=== PATIENT | male | born 1965 ===

== ENCOUNTER 2016-11-19 12:44 | Inpatient (IN) | payer SELFPAY ==
[2016-11-19] MEDS ORDERED: PROPOFOL/EMULSION 500 MG/50 ML BOTTLE IV ONE (12:49)
[2016-11-19] MEDS ORDERED: ASPIRIN RECTAL 300 MG SUPP PR ONE (12:54)
[2016-11-19] MEDS ORDERED: ROCURONIUM 100 MG/10 ML VIAL IVP ONE (13:00)
[2016-11-19] MEDS ORDERED: ETOMIDATE 20 MG/10 ML VIAL IVP ONE (13:00)
[2016-11-19] MEDS ORDERED: ASPIRIN 81 MG CHEWABLE TAB PO ONE (13:00)
--- NOTE | 2016-11-19 13:04 | EDPHY ---
H & P Time Seen by Provider: 11/19/16 12:44 HPI/ROS: CHIEF COMPLAINT: Cardiac arrest HISTORY OF PRESENT ILLNESS: Patient collapsed outside restaurant. There was 3 minutes CPR by 1st responders. On arrival by paramedics he had a pulse but lost pulses en route and was defibrillated once with return of pulses and sinus tachycardia. Only history available is that he had chest pain last night has no previous medical history. Further history and review of systems unobtainable because the patient is nonverbal and critical on arrival. PAST MEDICAL HISTORY: Negative per EMS Social history: , visiting from [place] per EMS General Appearance: Patient is obtunded on arrival. ENT, Mouth: Patient has a lower lip laceration, and dental injury to the upper teeth. Respiratory: Decreased breath sounds an agonal respirations. Cardiovascular: Regular rate and rhythm. Tachycardic Gastrointestinal: Abdomen is soft and non tender. Neurological: Patient is seen to move all 4 extremities but is moaning and nonverbal. Skin: No lacerations seen. Musculoskeletal: No extremity deformity. Remainder of examination deferred because of the critical nature of the patient. Emergency Department course/MDM: Patient was emergently intubated for airway protection, see procedure note for details. Rectal aspirin suppository. Dr. Olivares at bedside. Dr. Arora will evaluate in the ICU and deal with his lip laceration, discussed at 12:[address] Arrieta from oral surgery will see him in ICU re; dental trauma. To CT and then emergently to cardiac laborer petroleum refinery. Dr. Olivares met with the patient's , and consulted directly with Dr. Marquez who will meet the patient in the catheterization lab. Constitutional: Initial Vital Signs Heart Rate 119 H 11/19/16 12:44 Respiratory Rate 30 H 11/19/16 12:44 Blood Pressure 158/109 H 11/19/16 12:44 O2 Sat (%) 100 11/19/16 12:44 O2 Delivery Mode Ventilator Allergies/Adverse Reactions: Unable to Assess Allergy (Unverified 11/19/16 13:29) Home Medications: Medication Instructions Recorded Unobtainable 11/19/16 Medical Decision Making - Diagnostics EKG Interpretation: 12-lead EKG interpreted by me; official reading is in trace master. My interpretation is anterior ST elevation consistent with acute myocardial infarction, sinus tachycardia. Imaging: [place] CT head and cspine at 1329, facial trauma but no fracture, dental injury noted. Negative for other acute trauma. Reviewed personally by myself. CT results discussed with Dr. Maira Olivares at 1:30 p.m. Procedures: Indication for the procedure was cardiac arrest, inability to protect airway. Consent is implied as the patient is unconscious and nonverbal. The patient was preoxygenated with 100% oxygen by face mask. The patient was sedated with etomidate and paralyzed with rocuronium. The patient was orally endotracheally intubated under direct visualization with a 8.0 ETT. Tracheal intubation was confirmed with misting on the tube; breath sounds were auscultated equally bilaterally; appropriate color change with [employer] CO2 detector, capnography waveform is appropriate, oxygen saturation after procedure is 98-100%. Chest X-ray deferred to laborer [employer] ref[employer] because of the critical nature the patient. The procedure was performed by myself. Consult/Admit Bed Type: for oral surgery 1327 Critical Care Time: Critical care time spent by me, Dr. Isidro, exclusively with the care of this patient was 15 minutes, exclusive of PA or RECRUITER time and exclusive of separate procedures including intubation. The organ system at risk was cardiac and I ordered aspirin, EKG, supplemental oxygen, discussion with Cardiology consult Dr. Olivares and oral surgeon; to stabilize the patient and prevent worsening of the patient's condition. - Data Points Laboratory Results: Laboratory Results 11/19/16 12:48 11/19/16 12:48 11/19/16 12:48 WBC 24.27 H 10^3/uL (3.80-9.50) RBC 5.84 10^6/uL (4.40-6.38) Hgb 17.8 H g/dL (13.7-17.5) Hct 53.6 H % (40.0-51.0) MCV 91.8 fL (81.5-99.8) MCH 30.5 pg (27.9-34.1) MCHC 33.2 g/dL (32.4-36.7) RDW 13.2 % (11.5-15.2) Plt Count 297 10^3/uL (150-400) MPV 10.8 fL (8.7-11.7) Neut % (Auto) Not Reported Lymph % (Auto) Not Reported Forrest % (Auto) Not Reported Eos % (Auto) Not Reported Baso % (Auto) Not Reported Nucleat RBC Rel Count 0.0 % (0.0-0.2) Absolute Neuts (auto) Not Reported Absolute Lymphs (auto) Not Reported Absolute Monos (auto) Not Reported Absolute Eos (auto) Not Reported Absolute Basos (auto) Not Reported Absolute Nucleated RBC 0.00 10^3/uL (0-0.01) Immature Gran % Not Reported Seg Neutrophils % 58 % Band Neutrophils % 4 % Lymphocytes % 34 % Monocytes % 4 % Immature Gran # Not Reported Absolute Seg Neuts 14.08 H 10^/uL (1.70-6.50) Absolute Band Neuts 0.97 H 10^3/uL (0.00-0.70) Absolute Lymphocytes 8.25 H 10^3/uL (1.00-3.00) Absolute Monocytes 0.97 H 10^3/uL (0.30-0.80) RBC/WBC/PLT Morphology NORMAL (NORMAL) Atypical Lymphocytes 1+ H Platelet Estimate ADEQUATE (ADEQ) Smear Review By Pending PT 14.7 SEC (12.0-15.0) INR 1.15 (0.83-1.16) APTT 28.6 SEC (23.0-38.0) Sodium 144 mEq/L (134-144) Potassium 4.4 mEq/L (3.5-5.2) Chloride 106 mEq/L (97-110) Carbon Dioxide 18 L mEq/l (22-31) Anion Gap 20 H mEq/L (8-16) BUN 19 mg/dL (7-23) Creatinine 1.2 mg/dL (0.7-1.3) Estimated GFR > 60 Glucose 225 H mg/dL (70-100) Calcium 9.1 mg/dL (8.5-10.4) Troponin I 12.500 H ng/mL (0-0.034) Medications Given: Discontinued Medications Aspirin (Aspirin) 324 mg PO EDNOW ONE Stop: 11/19/16 13:01 Last Admin: 11/19/16 12:56 Dose: 324 mg Etomidate (Etomidate) 20 mg IVP EDNOW ONE Stop: 11/19/16 13:01 Last Admin: 11/19/16 12:49 Dose: 20 mg Propofol (Diprivan 10 Mg/Ml (Premix)) 50 mls @ 0 mls/hr IV EDNOW ONE; As Directed PRN Reason: Protocol Stop: 11/19/16 13:55 Last Admin: 11/19/16 13:59 Dose: 50 mls Rocuronium Wilmot (Zemuron) 100 mg IVP EDNOW ONE Stop: 11/19/16 13:01 Last Admin: 11/19/16 12:49 Dose: 100 mg Departure - Departure Disposition: [facility] Inpatient Acute Clinical Impression: STEMI (ST elevation myocardial infarction) Qualifiers: Involved coronary artery: unspecified coronary artery Qualifier Code: (I21.3) ST elevation (STEMI) myocardial infarction of unspecified site Lip laceration Qualifiers: Encounter type: initial encounter Qualifier Code: (S01.511A) Laceration without foreign body of lip, initial encounter Condition: Critical
[2016-11-19] MEDS ORDERED: LIDOCAINE 1% 30 ML SDV ONE (13:05)
[2016-11-19 13:06] LABS: ADD DIFF? YES; ADD MORPH? NO; ADD SCAN? NO; ATYPICAL LYMPHOCYTE FLAG 0 (0-99); FRAGMENT RBC FLAG 0 (0-99); HEMATOCRIT 53.6 % (40.0-51.0); HEMOGLOBIN 17.8 g/dL (13.7-17.5); LEFT SHIFT FLG 20 (0-99); LIPEMIA HEMOLYSIS FLAG 80 (0-99); MEAN CELL HEMOGLOBIN 30.5 pg (27.9-34.1); MEAN CELL HEMOGLOBIN CONCENTR. 33.2 g/dL (32.4-36.7); MEAN CELL VOLUME 91.8 fL (81.5-99.8); MEAN PLATELET VOLUME 10.8 fL (8.7-11.7); PLATELET CLUMPS FLAG 50 (0-99); PLATELET COUNT 297 10^3/uL (150-400); RED BLOOD CELL COUNT 5.84 10^6/uL (4.40-6.38); RED CELL DISTRIBUTION WIDTH 13.2 % (11.5-15.2)
[2016-11-19] MEDS ORDERED: fentaNYL 100 MCG/2 ML INJ ONE (13:06)
[2016-11-19] MEDS ORDERED: MIDAZOLAM 2 MG/2 ML VIAL ONE ×2 (13:06)
[2016-11-19] MEDS ORDERED: ATROPINE SULFATE 1 MG/10 ML SYR ONE ×2 (13:07→20:00)
[2016-11-19] MEDS ORDERED: EPINEPHrine 1 MG/10 ML SYR IVP ONE ×2 (13:08→20:00)
[2016-11-19] MEDS ORDERED: BIVALIRUDIN 250 MG/5 ML VIAL IV ONE ×2 (13:08→14:06)
[2016-11-19 13:11] LABS: ANION GAP 20 mEq/L (8-16); CALCIUM 9.1 mg/dL (8.5-10.4); CARBON DIOXIDE 18 mEq/l (22-31); CHLORIDE 106 mEq/L (97-110); CREATININE 1.2 mg/dL (0.7-1.3); GLOMERULAR FILTRATION RATE > 60; GLUCOSE 225 mg/dL (70-100); POTASSIUM 4.4 mEq/L (3.5-5.2); SODIUM 144 mEq/L (134-144)
[2016-11-19 13:14] LABS: INR 1.15 (0.83-1.16); PROTIME(PATIENT) 14.7 SEC (12.0-15.0)
[2016-11-19 13:15] LABS: APTT 28.6 SEC (23.0-38.0)
[2016-11-19] MEDS ORDERED: ETOMIDATE 40 MG/20 ML INJ ONE (13:25)
--- NOTE | 2016-11-19 13:33 | CT ---
1. CT Head Without Contrast History: Trauma. Cardiac arrest. Facial trauma. Acute MO. Technique: Noncontrast images through the head. Soft tissue and bone window evaluation is performed. Dose reduction techniques were utilized. Findings: The patient is intubated. There is soft tissue swelling in the naso and oropharynx. There i s no evidence for hemorrhage, mass lesion, acute infarction, intracranial edema, hydrocephalus or abn ormal intracranial calcification. No subarachnoid blood is identified. There is no midline shift. The ambient cistern is patent. Bone window evaluation reveals normally aerated paranasal and mastoid sin uses. There is no evidence of pneumocephalus. The right first incisor is absent. No facial bone fract ure is identified. Impression: 1. Head CT within normal limits. 2. Soft tissue swelling in the naso and oropharynx. 3. Absent right first incisor. 2. CT Cervical Spine Without Contrast History: Trauma. Cardiac arrest. Facial trauma. Acute MO. Technique: Multislice helical CT through the cervical spine without contrast from the skull base to T 1. Soft tissue and bone evaluation is performed. Sagittal and coronal reconstructions are obtained an d reviewed. Dose reduction techniques were utilized. Findings: Cervical alignment is anatomic. No fracture or dislocation is identified. The relationship between skull base and C1 is normal. The C1-C2 articulation is normally aligned. The odontoid process is intact. Disk spaces maintain their normal height . Facet joints are normally aligned. The cervic al thoracic junction is normally aligned. Soft tissue window evaluation does not show evidence of epi dural or prevertebral hematoma. Impression: No acute posttraumatic abnormality identified. Results called to Dr. Elías Isidro and Dr. Maira Olivares at 1:30 PM. Final results are concordant with the initial interpretation. General information for patients regarding this examination can be found at [email or web address]. If you have questions or comments about this report, please contact me at [phone] (hospital) or [phone] (cell).
--- NOTE | 2016-11-19 13:33 | CT ---
1. CT Head Without Contrast History: Trauma. Cardiac arrest. Facial trauma. Acute MA. Technique: Noncontrast images through the head. Soft tissue and bone window evaluation is performed. Dose reduction techniques were utilized. Findings: The patient is intubated. There is soft tissue swelling in the naso and oropharynx. There i s no evidence for hemorrhage, mass lesion, acute infarction, intracranial edema, hydrocephalus or abn ormal intracranial calcification. No subarachnoid blood is identified. There is no midline shift. The ambient cistern is patent. Bone window evaluation reveals normally aerated paranasal and mastoid sin uses. There is no evidence of pneumocephalus. The right first incisor is absent. No facial bone fract ure is identified. Impression: 1. Head CT within normal limits. 2. Soft tissue swelling in the naso and oropharynx. 3. Absent right first incisor. 2. CT Cervical Spine Without Contrast History: Trauma. Cardiac arrest. Facial trauma. Acute MA. Technique: Multislice helical CT through the cervical spine without contrast from the skull base to T 1. Soft tissue and bone evaluation is performed. Sagittal and coronal reconstructions are obtained an d reviewed. Dose reduction techniques were utilized. Findings: Cervical alignment is anatomic. No fracture or dislocation is identified. The relationship between skull base and C1 is normal. The C1-C2 articulation is normally aligned. The odontoid process is intact. Disk spaces maintain their normal height . Facet joints are normally aligned. The cervic al thoracic junction is normally aligned. Soft tissue window evaluation does not show evidence of epi dural or prevertebral hematoma. Impression: No acute posttraumatic abnormality identified. Results called to Dr. Elías Isidro and Dr. Maira Olivares at 1:30 PM. Final results are concordant with the initial interpretation. General information for patients regarding this examination can be found at [email or web address]. If you have questions or comments about this report, please contact me at [phone] (hospital) or [phone] (cell).
[2016-11-19 13:34] LABS: PLATELET ESTIMATE ADEQUATE (ADEQ)
[2016-11-19] MEDS ORDERED: DOPamine/DEXTROSE/250 ML BAG IV ONE ×2 (13:40→19:46)
[2016-11-19 13:42] LABS: BASE EXCESS -10.9 mEq/L (-2.5-2.5); BICARBONATE 16 mEq/L (22-26); MEASURED OXYGEN SATURATION 95 % (92-95); PCO2 38 mmHg (34-38); PO2 96 mmHg (65-75); TCO2 17 mEq/L (23-27)
--- NOTE | 2016-11-19 13:42 | CPEKG ---
Heart Rate: 121 RR Interval: 496 QRSD Interval: 292 QT Interval: 524 QTC Interval: 744 QRS Granby: 2 T Wave Granby: 193 EKG Severity - ABNORMAL ECG - EKG Impression: WIDE COMPLEX TACHYCARDIA EKG Impression: ABERRANT COMPLEX EKG Impression: CONSIDER ANTEROSEPTAL INFARCT, POSSIBLY ACUTE EKG Impression: NONSPECIFIC INTRAVENTRICULAR CONDUCTION DELAY Electronically Signed By: Elías Isidro 19-Nov-2016 14:01:50
[2016-11-19 13:45] LABS: O2 CONCENTRATIION 100 % (0-100); P/F RATIO 96 RATIO; SIMV YES
[2016-11-19 13:46] LABS: PRESSURE SUPPORT 7
[2016-11-19] MEDS ORDERED: PROPOFOL/EMULSION 50 ML IV ONE (13:54)
[2016-11-19] MEDS ORDERED: IOPAMIDOL (ISOVUE 370) 100 ML BTL IV ONE (14:20)
[2016-11-19] MEDS ORDERED: NITROGLYCERIN 1,500 MCG/15 ML VIAL MISC ONE (14:22)
[2016-11-19] MEDS ORDERED: VECURONIUM BROMIDE 10 MG VIAL ONE ×2 (14:28→15:41)
[2016-11-19] MEDS ORDERED: ABCIXIMAB 10 MG/5 ML VIAL ONE (14:32)
[2016-11-19] MEDS ORDERED: CEFAZOLIN 1 GM/DEXTROSE/50 ML BAG IV ONE (15:22)
[2016-11-19] MEDS ORDERED: PROPOFOL/EMULSION 50 ML IV SCH (16:51)
[2016-11-19] MEDS ORDERED: USE *INSINTENS FOR HYPOGLYCEMIA ORDERS MISC ONE (16:51)
[2016-11-19] MEDS ORDERED: NOREPINEPHRINE BITARTRATE 4 MG in D5W 500 ML IV PRN (16:51)
[2016-11-19] MEDS ORDERED: NS 250 ML IV PRN (16:51)
[2016-11-19] MEDS ORDERED: PROPOFOL/EMULSION 1,000 MG/100 ML BOTTLE IV ONE (16:51)
[2016-11-19] MEDS ORDERED: NS 1,000 ML IV ONE (16:51)
[2016-11-19] MEDS ORDERED: NARCOTIC DRIP BAG-TOTAL ALL TYPES IV PRN (16:51)
[2016-11-19] MEDS ORDERED: PROTOCOL POTASSIUM 1 DOSE MISC PRN ×2 (16:51→17:02)
[2016-11-19] MEDS ORDERED: PROTOCOL MAGNESIUM 1 DOSE IV PRN ×2 (16:51→17:02)
[2016-11-19] MEDS ORDERED: NS 1,000 ML IV SCH (16:51)
[2016-11-19] MEDS ORDERED: niCARdipine/NACL 200 ML IV PRN (16:51)
[2016-11-19] MEDS ORDERED: fentaNYL 100 MCG/2 ML INJ IVP ONE (16:51)
[2016-11-19] MEDS ORDERED: MIDAZOLAM 2 MG/2 ML VIAL IVP PRN (16:51)
[2016-11-19] MEDS ORDERED: ACETAMINOPHEN 325 MG TAB PO PRN (16:58)
[2016-11-19] MEDS ORDERED: TEMAZEPAM 15 MG CAP PO PRN (16:58)
[2016-11-19] MEDS ORDERED: ATROPINE SULFATE 1 MG/10 ML SYR IVP PRN (16:58)
[2016-11-19] MEDS ORDERED: PRASUGREL HCL 10 MG TAB PO ONE (16:58)
[2016-11-19] MEDS ORDERED: LORazepam 2 MG/ML INJ IVP PRN (16:58)
[2016-11-19] MEDS ORDERED: NITROGLYCERIN 0.4 MG BTL SL PRN (16:58)
[2016-11-19] MEDS ORDERED: PRASUGREL HCL 10 MG TAB ONE (17:02)
[2016-11-19] MEDS: fentaNYL/NACL 100 ML IV SCH (17:19)
[2016-11-19 17:26] LABS: % IMMATURE GRANULYOCYTES 0.8 % (0.0-1.1); ABSOLUTE IMMATURE GRANULOCYTES 0.23 10^3/uL (0.00-0.10); ADD DIFF? NO; ADD MORPH? NO; ADD SCAN? NO; ATYPICAL LYMPHOCYTE FLAG 0 (0-99); FRAGMENT RBC FLAG 0 (0-99); HEMATOCRIT 54.9 % (40.0-51.0); HEMOGLOBIN 18.5 g/dL (13.7-17.5); LEFT SHIFT FLG 10 (0-99); LIPEMIA HEMOLYSIS FLAG 80 (0-99); MEAN CELL HEMOGLOBIN 30.7 pg (27.9-34.1); MEAN CELL HEMOGLOBIN CONCENTR. 33.7 g/dL (32.4-36.7); MEAN PLATELET VOLUME 11.2 fL (8.7-11.7); PLATELET CLUMPS FLAG 10 (0-99); PLATELET COUNT 317 10^3/uL (150-400); RED BLOOD CELL COUNT 6.03 10^6/uL (4.40-6.38); RED CELL DISTRIBUTION WIDTH 13.2 % (11.5-15.2)
[2016-11-19] MEDS: VECURONIUM BROMIDE 50 MG in D5W 50 ML IV SCH ×2 (17:28→17:43)
[2016-11-19] MEDS ORDERED: PRASUGREL HCL 10 MG TAB TUBE ONE (17:30)
[2016-11-19 17:33] LABS: INR 1.61 (0.83-1.16); PROTIME(PATIENT) 19.2 SEC (12.0-15.0)
[2016-11-19 17:34] LABS: APTT 54.7 SEC (23.0-38.0)
[2016-11-19 17:44] LABS: ALANINE AMINOTRANSFERASE 861 IU/L (21-72); ALBUMIN 4.4 g/dL (3.5-5.0); ALKALINE PHOSPHATASE 103 IU/L (38-126); ANION GAP 19 mEq/L (8-16); BILIRUBIN,TOTAL 1.4 mg/dL (0.1-1.4); BILIRUBIN-CONJUGATED 0.8 mg/dL (0.0-0.5); BILIRUBIN-UNCONJUGATED 0.6 mg/dL (0.0-1.1); CALCIUM 8.1 mg/dL (8.5-10.4); CARBON DIOXIDE 17 mEq/l (22-31); CHLORIDE 105 mEq/L (97-110); CREATININE 1.2 mg/dL (0.7-1.3); GLOMERULAR FILTRATION RATE > 60; GLUCOSE 338 mg/dL (70-100); POTASSIUM 3.8 mEq/L (3.5-5.2); SODIUM 141 mEq/L (134-144); TOTAL PROTEIN 7.9 g/dL (6.3-8.2)
--- NOTE | 2016-11-19 17:51 | DX ---
Portable AP chest. 11/19/2016 at 1720 History: Chest Pain Comparison study: None available Findings: Patient is intubated. There is a NG tube and IABP. Patchy atelectasis/consolidation of the central lungs bilaterally suggesting pulmonary edema. Impression: Intubation, IABP placement, NG-tube placement. Central bilateral lung consolidation sugg est pulmonary edema.
--- NOTE | 2016-11-19 17:53 | DX ---
Single view abdomen. 11/19/2016. History: NG tube placement. Findings: There is been placement of a nasogastric tube which extends to the gastric fundus. IABP catheter is identified to the left of midline. Excreted IV contrast is present within both kidneys from recent cardiac intervention. A duplicated re nal collecting system is present on the right. Impression: 1. NG tube extends to the gastric fundus.
[2016-11-19 17:58] LABS: ASPARTATE AMINOTRANSFERASE 1072 IU/L (17-59)
--- NOTE | 2016-11-19 18:24 | GHP ---
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 The patient had an argument with one of his 8 children, and experienc ed relatively severe chest tightness and pressure, which felt like a charley horse in his perez muscle s, deltoids, neck and upper back. Ultimately, that began to resolve, and the patient just felt sore and fatigued in his chest. He and his had planned a trip to [place] for a short celebration of his recent birthday on November 15, and spent the night in a bed and breakfast. He was somewhat fat igued for the majority of the day yesterday and pale, according to his . Last night, he went to bed to awaken this morning, and they walked briskly along the [employer], and he seemed to hav e his color back, but just felt somewhat fatigued. He did not complain of chest pain, palpitations, or shortness of breath today. His and he were outside of [employer] discussing what they would have for a light lunch, either soup or a wrap, when this patient suddenly lost consciousness an d pitched forward onto his face, striking his face on the hard surface of the [employer]. His immediately called 911 because he did not move, and a police judge were there within the firs t minute. They rolled him onto his back. He was unresponsive, and immediate high-quality CPR was in itiated by the [place] [employer], as well as a bystander, and [facility] Emergency Depart ment physician. The EMS arrived, and the patient was shocked successfully with a single shock from v entricular fibrillation arrest, with return of spontaneous circulation. The patient had sonorous chuy athing after his collapse, but was unresponsive through the entire episode. Cardiac alert was called, and Dr. Maira Olivares responded immediately, as she was in the hospital. I wa s also called, and began to make my way to the emergency department. The patient's initial EKG revea led sinus tachycardia, with an acute injury pattern in I, aVL, V1 and V2, with associated reciprocal change. There is clear-cut evidence of a STEMI involving the aVL, V2, V5, and V6 leads. A stat CT o f his head was performed because of the facial trauma to rule out an intracranial hemorrhage, as well as a cervical spine CT, and those were negative for fracture. The head CT was felt to be within nor mal limits. There was soft tissue swelling in the nasal and oropharynx, and there was an absent righ t 1st incisor, which was consistent with the patient's collapse, and an obviously broken tooth. The patient of course was unresponsive at the time of my arrival, and was on a propofol drip and intu bated. Additional history was obtained following the cardiac catheterization procedure, which I perf ormed. MEDICATIONS: The patient currently takes no medications. ALLERGIES: Is not known to be allergic to any medications. PAST SURGICAL HISTORY: Significant for a prior vasectomy, as well as a remote appendectomy. He has also had LASIK eye surgery. He is not known to have hypertension, diabetes or dyslipidemia. FAMILY HISTORY: The patient has a strong family history of premature cardiovascular illness. His mo ther has received multiple stents over the course of her lifetime, and his father has also suffered a silent myocardial infarction, and is currently hospitalized, and has been since last [place]. His father is not expected to have a meaningful survival at present. SOCIAL HISTORY: Negative for smoking. The patient denies illicit drug use of any kind. The patient 's states that he drinks approximately 1 beer less than once a week, so his alcohol consumption is minimal. He works as a real-real estate internship, as a said, in [place], and is and has 8 children. PHYSICAL EXAM: VITAL SIGNS: On arrival revealed a blood pressure of 158/109, heart rate 119, respir atory rate 30, with 100% bag valve FiO2. HEENT: On arrival in the emergency department, the patient has facial trauma, with laceration to his lip. He has also cracked off his 1st right incisor. The patient is intubated, with active facial bleeding. NECK: Reveals no JVD or crepitus. HEART: Revea ls an S1 and S2 with a summation gallop. LUNGS: Reveal bilateral rales. ABDOMEN: Reveals positive bowel sounds, is nondistended and nontender. EXTREMITIES: Cool and dry with diaphoresis. LABORATORY DATA: The EKG, as I mentioned, shows ST-segment elevation in I, aVL, V5 and V6, as well a s V2, consistent with a lateral ST-elevation myocardial infarction, but also concern for anterior or RV involvement. The patient's laboratory studies reveal a blood gas, pH is 7.24, pCO2 at 38, PO2 96. White count of 24.27, hemoglobin and hematocrit 17.8 and 53.6, platelet count 297. Coags were normal, with an INR o f 1.15, PT 14.7. The chemistries reveal a troponin of 12.5, a nonfasting glucose of 225, an anion ga p of 20, serum bicarbonate of 18, potassium is 4.4, BUN and creatinine are 19 and 1.2. IMPRESSION AND PLAN: [id number] cardiac arrest, with return of spontaneous circulation. The thomas rainey is currently noted to be comatose and unresponsive. The patient is having an acute ST-elevatio n myocardial infarction. The patient will be taken emergently to the cardiac catheterization [facility] for definitive assessment of his coronary anatomy, as well as for acute infarct intervention. Th e patient is Killip class IV, on the basis of his presentation and examination, and therefore has a v dominique guarded prognosis, both in the short term, that is the next 24 hours, as well as within the next 30 days, being a highest risk patient by those parameters. /[id number]/MODL
[2016-11-19] MEDS ORDERED: POTASSIUM Cl (KCl) 50 ML IV ONE (18:31)
[2016-11-19] MEDS ORDERED: AMIODARONE HCL 150 MG/100 ML BAG (1.5 MG/ML) IV ONE (18:35)
[2016-11-19] MEDS ORDERED: ASPIRIN 325 MG TAB ONE (18:35)
[2016-11-19 18:45] LABS: BASE EXCESS -14.1 mEq/L (-2.5-2.5); BICARBONATE 14 mEq/L (22-26); IONIZED CALCIUM 1.18 MMOL/L (1.12-1.30); MEASURED OXYGEN SATURATION 94 % (92-95); PCO2 41 mmHg (34-38); PO2 90 mmHg (65-75); TCO2 16 mEq/L (23-27)
[2016-11-19] MEDS ORDERED: D5W 1,000 ML IV SCH ×2 (18:46→19:00)
[2016-11-19] MEDS ORDERED: D50W 25 GM/50 ML SYR IVP PRN (18:46)
[2016-11-19] MEDS ORDERED: SODIUM BICARBONATE 50 MEQ/50 ML SYR ONE (18:58)
[2016-11-19] MEDS ORDERED: ATORVASTATIN CALCIUM 40 MG TAB TUBE ONE (19:00)
[2016-11-19] MEDS ORDERED: AMIODARONE HCL 100 ML IV ONE ×2 (19:00)
[2016-11-19] MEDS ORDERED: INSULIN REGULAR HUMAN 100 UNIT in NS 100 ML IV SCH (19:00)
[2016-11-19] MEDS ORDERED: ASPIRIN 325 MG TAB TUBE ONE (19:00)
[2016-11-19] MEDS: CARVEDILOL 3.125 MG TAB PO SCH (19:04)
[2016-11-19] MEDS: ERTAPENEM 1 GM in NS 100 ML IV SCH (19:06)
[2016-11-19] MEDS: INSULIN REGULAR HUMAN 100 UNIT in NS 100 ML IV SCH (19:06)
[2016-11-19 19:13] LABS: MAGNESIUM 1.9 mg/dL (1.6-2.3)
--- NOTE | 2016-11-19 19:14 | CPIP ---
[f rep st] INVASIVE CARDIAC PROCEDURE DATE OF PROCEDURE: 11/19/2016 REPORT TITLE: CARDIAC CATHETERIZATION EMERGENCY PROCEDURE REPORT PROCEDURES PERFORMED: 1. Selective coronary angiography. 2. Left heart catheterization. 3. Left ventriculogram. 4. Percutaneous transluminal coronary angioplasty and stent placement of the left circumflex coronar y. 5. Percutaneous transluminal coronary angioplasty and stent placement of the left anterior descendin g, ostial, and proximal left anterior descending and diagonal-1 bifurcation with crush and kissing ba lloon technique. 6. Percutaneous transluminal coronary angioplasty and stent placement of the right coronary artery. 7. Insertion of intra-aortic balloon pump for indication of cardiogenic shock in a patient status po st cardiac arrest. 8. Initiation of HACA protocol and placement of a cooling catheter for purposes of the same. COMPLICATIONS: A small, less than 5 cm hematoma, involving the groin femoral artery and venous inser tion sites in the right groin access. INDICATION FOR THE PROCEDURE: An out of hospital cardiac arrest secondary to acute ST-segment elevat ion myocardial infarction with return of spontaneous circulation in a patient who remains comatose. PROCEDURE IN DETAIL: After informed consent was obtained and n.p.o. status was confirmed, the region of the right groin was cleaned prepped and draped in sterile fashion. A 7-Vatican Citizen sheath was placed in the right common femoral artery and a 6-Vatican Citizen sheath in the right co mmon femoral vein with single anterior puncture of those vessels. CORONARY ANGIOGRAPHY: The patient underwent selective angiography of the right coronary artery with the use of a 6-Vatican Citizen JR4 diagnostic catheter. The right coronary artery is co-dominant, giving rise to a large acute marginal branch, followed by a 100% occlusion with vjmin-am-currk collaterals and T IMI-2 flow in that region. A 7-Vatican Citizen JL4 guiding catheter was used for diagnostic angiography of the left circulation. The lef t main coronary is approximately 8 mm in size, and bifurcates into an LAD and circumflex system. The LAD is 100% occluded with LAILA-0 flow shortly after its takeoff from the left main. The 1st diagona l also has a 99% obstruction with LAILA-2 flow in that vessel. The circumflex artery is 3 mm in size, and has a 100% occlusion with LAILA-2 flow to that vessel as well. We immediately turned our attention to repair of the circumflex, which revealed a 100% occlusion in o rder to try to return some blood flow to the patient's heart. A 0.014 Intuition wire was advanced ac ross the lesion in the circumflex, and the primary angioplasty was performed with an Emerge 2.0 x 8 b alloon. This resulted in antegrade flow that was improved into the codominant left circumflex, and t he left circumflex was then stented with a 2.5 x 20 [employer] stent inflated to maximum press ure of 16 atmospheres with subsequent improvement in flow. There was approximately 50% obstruction d istal to the stent. It was unclear to me if this was residual clot, or actual plaque. We redirected the Intuition wire down the LAD, and the LAD was primarily opened. With that wire, a 2nd wire was p laced into the diagonal vessel, and the 1st diagonal was stented with a 2.5 x 20 Synergy drug-eluting stent. The LAD was also stented with a 3.0 x 20 Synergy stent in its proximal segment. With implan tation of the diagonal stent, it became clear that we would have to stent back across the diagonal an d perform kissing balloon angioplasty, which was, indeed, performed with a 3.25 x 15 and a 2.5 x 15 E merge balloon. The LAD in the ostial segment was also stented with a 3.0 x 12 Synergy stent placed i n overlapping fashion in the LAD proper, and kissing balloon angioplasty was accomplished. We then n oted excellent LAILA-3 flow in the LAD and circumflex with 0% residual stenosis of both of those lesio ns. With angiography, we noted that there was acute stent thrombosis involving the previously placed sten t within the left circumflex, likely secondary to low-flow states. ACTs had been documented to be ad equate throughout this procedure, with initial ACT after Angiomax bolus and drip at 376. We, therefo re, placed a balloon up in that vessel, and placed a 2nd 2.5 x 20 drug-eluting stent in overlapping f ashion in the left circumflex with excellent angiographic results post dilation, and 0% residual stat us post PTCA and stent placement. There was excellent LAILA-3 flow throughout the circumflex LAD and diagonal stents post stent implantation. We turned our attention to the right coronary artery. A 7-Vatican Citizen JR4 guiding catheter with side hole s was used for guide catheter support. An 0.014 Intuition wire was advanced across lesion in questio n within the distal LAD, and parked in the distal PDA. The vessel was ballooned open with a 2.5 Elina ge balloon with serial inflations. The distal right coronary was then stented with a 2.5 x 28 Synerg y balloon inflated to maximum 16 atmospheres overlapping a 2.75 x 28 Synergy stent, which was then pl aced in the distal LAD, and the proximal segment was placed. The proximal portion of the 2.75 x 28 s tent was placed just distal to the takeoff of the acute marginal branch, and we improved the flow in the right coronary artery from a LAILA-2 flow to LAILA-3 flow with 100% occlusion and ahwqd-zr-bsxnh co llaterals initially, followed by brisk antegrade flow and 0% residual status post PTCA and stent plac ement. The patient underwent left heart catheterization demonstrating elevated left ventricular end-diastoli c pressure measured at 35 mmHg. LEFT VENTRICULOGRAM: The patient underwent left ventriculogram in the MCCRARY projection demonstrating s everely depressed left ventricular systolic dysfunction with basically global hypokinesis, and an est imated ejection fraction of 10%, and there was no evidence of a gradient upon pullback across the aor tic valve. The visualized portion of thoracic aorta did not reveal a taylor aneurysm or dissection. Because of the findings of the left ventriculogram and the acute nature of the patient's presentation , we decided to remove the pigtail catheter. We switched out the 7-Vatican Citizen sheath for an 8-Vatican Citizen int ra-aortic balloon pump sheath without a side arm. An intra-aortic balloon pump wire was then advance d under direct fluoroscopic guidance into the aortic arch, and the balloon pump catheter was appropri ately zeroed, and 40 cc catheter was advanced under direct fluoroscopic guidance with the tip placed just distal to the left subclavian take-off in the descending limb of the thoracic aorta. The balloo n pump was noted to be augmenting and unfurled appropriately after its insertion and appropriate conn ection to the intra-aortic balloon pump console. The 6-Vatican Citizen sheath, which was being used for intravenous dopamine support during the case, was excha nged for a cooling catheter for the HACA protocol, and the catheter was advanced under direct fluoros copic guidance over a wire without a sheath after appropriate tract dilation into the vicinity of the inferior vena cava. The triple lumen arms were flushed and connected. One was connected to the dop amine infusion. The cooling catheter, triple-lumen set up, and the intra-aortic balloon pump were quezada tured in sutured into place and sterile dressings were applied. The patient will be moved to the ICU in critical condition with a guarded prognosis with therapeutic hypothermia initiated with the cooling catheter once he arrives in the emergency department. FINAL IMPRESSION: Successful balloon acute infarct angioplasty and stent implantation with placement of an intra-aortic balloon pump and initiation of HACA protocol. Copy requested to: Patient's Home Address Primary Care Physician /[id number]/MODL
[2016-11-19] MEDS ORDERED: SODIUM BICARBONATE 50 MEQ/50 ML SYR IV ONE ×3 (19:30)
[2016-11-19] MEDS: SODIUM BICARBONATE 150 MEQ in D5W 1,000 ML IV SCH (19:31)
[2016-11-19 19:34] LABS: CK-MB INTERPRETATION NEGATIVE (NEGATIVE); LACTATE DEHYDROGENASE 5937 IU/L (313-618)
[2016-11-19] MEDS ORDERED: CALCIUM CHLORIDE 1 GM/10 ML INJ IV ONE (19:41)
--- NOTE | 2016-11-19 19:44 | GCON ---
[f rep st] CONSULTATION PULMONARY CRITICAL CARE CONSULTATION DATE OF CONSULTATION: 11/19/2016 REASON FOR CONSULTATION: Ruh-jh-lbyjqzzt cardiac arrest, cardiogenic shock, respiratory failure, HAC A protocol. HISTORY: The patient is a 51-year-old with unknown past medical history. He lives in [facility] and was here in [place] with his on the [address]. He apparently had a sudden collap se. CPR was initiated by nearby officers and subsequently by the paramedics. He apparently had a pu lse initially with the paramedics but lost pulses in route, was defibrillated with return of spontane ous circulation. He apparently had been having some chest pain over the last day or so. Past medica l history is unknown at this point in time. His is not here with him. He apparently struck his face when he collapsed, lacerating his lip and possibly losing a tooth. In the emergency room, he was intubated. A CT scan of the head was performed which was negative for intracranial abnormalities. He was taken emergently to the semiconductor lab technician where he had total occlusion of all main arteries including circumflex, right coronary artery, and left anterior descending. Multipl e stents were placed. A balloon pump was placed. A Thermoguard catheter was placed for initiation o f cooling for the HACA protocol. He was eventually returned to the intensive care unit. He is being started on paralytics and Versed. He is on dopamine for blood pressure support, the intra-aortic ba lloon pump at 1:1. Cooling is actively being initiated. PAST MEDICAL HISTORY: Unknown. MEDICATIONS: Unknown. SOCIAL HISTORY: by report, 8 children. Tobacco and alcohol: Unknown. FAMILY HISTORY: Unknown. REVIEW OF SYSTEMS: Unknown/unobtainable. PHYSICAL EXAMINATION: GENERAL: Reveals a gentleman who is unresponsive. Pupils are equal and react mark. An intra-aortic balloon pump is in place. He is on the ventilator and has oral endotracheal tu be and orogastric tube in place. Multiple lines, balloon pump, central line and Thermoguard catheter are all present in the right groin. VITAL SIGNS: Current blood pressure is approximately 90/60, heart rate 100 with ectopy. HEENT: Notable for round and reactive pupils. Oral endotracheal tube and orogastric tube are in fany ce. He has blood in both nares. There was some blood in the mouth, laceration of the lip. Teeth we re not examined, but by report he has 1 tooth missing. Neck appears normal. There is no lymphadenop athy, thyromegaly, or jugular venous distention. Breath sounds are quite coarse with congestion hear d bilaterally and bilateral rales present. Secretions are minimal. HEART: Tones are distant. An intra-aortic balloon pump is in place at 1:1. ABDOMEN: Soft. Tenderness cannot be assessed. Bowel sounds are absent currently. Groin lines are as noted above. EXTREMITIES: Without edema. There is mild discoloration of the distal extremities with poor capilla ry refill. Pulses cannot be felt in the radial arteries or in the left groin, or in the feet. Howev er, all extremities are relatively warm. He is unresponsive, does not move to stimuli but has receiv ed paralytics. DATABASE: Chest x-ray shows lines and tubes to be in good position. There are bilateral pulmonary i nfiltrates consistent with pulmonary edema. Aspiration with aspiration pneumonitis cannot be exclude d. An abdominal film shows the OG tube being in appropriate position. LABORATORY: White blood cell count 27,000. Hematocrit 54.9. Platelets are 317. PT on admission wa s normal at 14.7 with a PTT of 28.6. In the ICU, PT is 19 with a PTT of 54, both elevated. Arterial blood gas done at 1340 showed a pH of 7.24, pCO2 38, and PO2 96. CO2 was 17. Sodium is 141, potass ium 3.8, CO2 17, anion gap 19, BUN 17 with a creatinine 1.2. Glucose is 338, bilirubin 1.4, calcium 8.1, AST 1072, ALT 861. Albumin is 4.4. ASSESSMENT: 1. Sxb-ar-ybsazsmm cardiac arrest secondary to acute CO. 2. Severe coronary artery disease with ischemic cardiomyopathy. Ejection fraction is 10%. He is st atus post multiple stents. 3. Cardiogenic shock. Intra-aortic balloon pump is in place. He is also on dopamine with a mean ar terial pressure of approximately 65. 4. Acute respiratory failure secondary to arrest. Aspiration cannot be excluded, and he will be cov ered with Ertapenem for this. 5. HACA protocol. He has been unresponsive since his arrest. Anoxic encephalopathy is possible and the HACA protocol will be undertaken. 6. Possible anoxic encephalopathy. It is too early to tell. Please see the comments above. 7. Elevated liver function tests: Presumably secondary to shock liver. 8. Mildly elevated BUN and creatinine. Also presumably secondary to shock. However, baseline numbe rs are unknown. He does have a metabolic acidosis secondary to his arrest. PLAN AND RECOMMENDATIONS: The patient will be supported on the ventilator. He will be on the HACA p rotocol with serial laboratories performed. Chest x-ray and blood gas will be followed. Ertapenem w ill be added to his regimen for possible aspiration after a sputum culture has been obtained. Rewarm ing will not start until tomorrow night at approximately 1700. Assessment of neurologic status can b e made once he is rewarmed, approximately 5:00 a.m. on Monday. He will be paralyzed, given. Versed said, pressure supported as needed, given intravenous fluids, albumin and blood products as indicated . Prognosis is unknown at this time, but from a cardiac standpoint alone, prognosis is guarded. His wi fe is not currently here. Further plans and recommendations will be made based on his progress over the next 12-24 hours. /[id number]/MODL
[2016-11-19] MEDS ORDERED: DOBUTamine/DEXTROSE 250 ML IV SCH (20:00)
[2016-11-19 20:13] LABS: HEMATOCRIT 47.8 % (40.0-51.0); HEMOGLOBIN 16.3 g/dL (13.7-17.5)
[2016-11-19 20:14] LABS: BASE EXCESS -11.6 mEq/L (-2.5-2.5); BICARBONATE 15 mEq/L (22-26); IONIZED CALCIUM 1.09 MMOL/L (1.12-1.30); MEASURED OXYGEN SATURATION 95 % (92-95); PCO2 36 mmHg (34-38); PO2 94 mmHg (65-75); TCO2 16 mEq/L (23-27)
[2016-11-19 20:24] LABS: INR 1.44 (0.83-1.16); PROTIME(PATIENT) 17.5 SEC (12.0-15.0)
[2016-11-19 20:27] LABS: ALANINE AMINOTRANSFERASE 655 IU/L (21-72); ALBUMIN 3.5 g/dL (3.5-5.0); ALKALINE PHOSPHATASE 71 IU/L (38-126); ANION GAP 21 mEq/L (8-16); BILIRUBIN,TOTAL 0.8 mg/dL (0.1-1.4); CALCIUM 7.8 mg/dL (8.5-10.4); CARBON DIOXIDE 15 mEq/l (22-31); CHLORIDE 106 mEq/L (97-110); CREATININE 1.2 mg/dL (0.7-1.3); GLOMERULAR FILTRATION RATE > 60; GLUCOSE 399 mg/dL (70-100); MAGNESIUM 1.7 mg/dL (1.6-2.3); POTASSIUM 3.6 mEq/L (3.5-5.2); SODIUM 142 mEq/L (134-144); TOTAL PROTEIN 6.2 g/dL (6.3-8.2)
[2016-11-19] MEDS ORDERED: ALBUMIN 5% 500 ML BOTTLE IV ONE (20:32)
[2016-11-19 20:43] LABS: ASPARTATE AMINOTRANSFERASE 844 IU/L (17-59)
[2016-11-19] MEDS ORDERED: MAGNESIUM SULF 1 GM/DEXTROSE 100 ML IV ONE (20:56)
--- NOTE | 2016-11-19 20:56 | PDCONSULT ---
Hoop Punch Operator Helper Note: ED consulted OMFS for fractured teeth. Patient currently orally intubated and monitored in the ICU. Lip laceration repaired by previous MD. Pt has fractures of #7 and 9, and avulsion of #8. No dental treatment recommended until pt is stabilized and discharged from [facility]; pt can resume dental care from general dentist instead of an oral and maxillofacial surgeon. Appreciate consult, please call again if needed.
[2016-11-19 20:58] LABS: CK-MB INTERPRETATION POSITIVE (NEGATIVE)
[2016-11-19] MEDS ORDERED: ALBUMIN 5% 500 ML IV ONE (21:00)
[2016-11-19] MEDS ORDERED: CALCIUM CHLORIDE 1 GM/10 ML INJ IVP ONE (21:00)
--- NOTE | 2016-11-19 21:24 | GOP ---
[f rep st] OPERATIVE REPORT DATE OF OPERATION: SURGEON: Torito Arora MD PREOPERATIVE DIAGNOSIS: Myocardial infarction requiring 6 stents and a balloon pump with facial trauma due to fall POSTOPERATIVE DIAGNOSIS: Myocardial infarction requiring 6 stents and a balloon pump with facial trauma due to fall PROCEDURE PERFORMED: a-line placement, repair lip laceration, nasal packing FINDINGS: Myocardial infarction requiring 6 stents and a balloon pump with facial trauma due to fall INDICATIONS: The patient underwent a cardiac arrest, was found down. He presented to the emergency room and was taken to the laborer tan house where 6 stents were placed. I was asked to come assist with his care. DESCRIPTION OF PROCEDURES: PROCEDURE #1: ARTERIAL LINE- This patient has a need for an arterial line to optimize management of pressors. His pulse was very thready in both of his wrists. The balloon pump is in his right femoral artery. I can palpate a left femoral vessel and I have marked it with an indelible marker. The groin was carefully prepped and draped with Betadine. A large sterile field was obtained. I am able to access the artery on the second pass. I was able to feed a guidewire centrally. The skin was sharply incised, this was after the needle was removed over the guidewire, the arterial catheter was fed over the guidewire. Good minimally pulsatile blood return was identified. The catheter was sewn in place and connected to the arterial transducer. A good waveform is noted. A medium-sized Tegaderm was placed as a bandage over the puncture site. PROCEDURE #2: REPAIR LIP LACERATION- He has a through and through lip laceration from falling on the pavement. His tooth had been broken off and had previously been given to his . A sterile field was developed. The wound had been well irrigated with saline. The irregular edges were debrided. There were 2 wounds, one was a T-shaped wound with a leg extending anteriorly starting in the buccal side of the lip and going to approximately the mid portion of the lip. The second was a transverse laceration just at the kylie border. The transverse incision at the kylie border was approximated with 1 vertical mattress suture of #5-0 Prolene at its midpoint and 2 simple sutures on either side. The T-shaped buccal mucosa portion was carefully trimmed of devitalized tissue. One vertical mattress suture of #5-0 Prolene was placed to approximate the leg of the T where it hits the cross-piece of the T. A simple one was placed further down the leg of the T. The transverse portion of the T was closed with a simple sutures of 4-0 Vicryl , several were placed. A U-shaped stitch was placed at the junction of the T and the leg of the T. This resulted in a reasonable closure. PROCEDURE #3: NASAL PACKING- He has been continually oozing from his nose. We know this is because of nasal contusion and anticoagulation that he is on at this point. The nose was carefully packed using bayonet forceps and Vaseline gauze. This was done after all clots had been expressed from the nose. This is a temporizing measure. The patient tolerated the procedures well. /[id number]/MODL MTDD
[2016-11-19] MEDS ORDERED: NA BICARBONATE 50 MEQ/50 ML VIAL IV ONE (21:30)
[2016-11-19] MEDS: POTASSIUM Cl (KCl) 50 ML IV SCH ×3 (21:41→22:50)
[2016-11-19 22:07] LABS: BICARBONATE 15 mEq/L (22-26); IONIZED CALCIUM 1.22 MMOL/L (1.12-1.30); MEASURED OXYGEN SATURATION 99 % (92-95); PCO2 27 mmHg (34-38); PO2 126 mmHg (65-75); TCO2 16 mEq/L (23-27)
[2016-11-19 22:09] LABS: END TIDAL CO2 18; P/F RATIO 126 RATIO; PATIENT RATE 30; PIP 28.6; PRESSURE SUPPORT 7; SIMV YES
[2016-11-19 22:11] LABS: O2 CONCENTRATIION 100 % (0-100)
[2016-11-19 23:36] LABS: PHENCYCLIDINE URINE BCH < 6 ng/ml (NEGATIVE); TETRAHYDROCANNABINOL URINE < 5 ng/mL (NEGATIVE)
[2016-11-19 23:40] LABS: PHENCYCLIDINE URINE BCH NEGATIVE (NEGATIVE); TETRAHYDROCANNABINOL URINE NEGATIVE (NEGATIVE)
[2016-11-20] MEDS: INSULIN REGULAR HUMAN 100 UNIT in NS 100 ML IV SCH ×3 (00:47→09:21)
[2016-11-20 01:08] LABS: POTASSIUM 3.1 mEq/L (3.5-5.2)
[2016-11-20] MEDS: POTASSIUM Cl (KCl) 50 ML IV SCH ×8 (01:42→12:23)
[2016-11-20 01:59] LABS: CK-MB INTERPRETATION POSITIVE (NEGATIVE)
[2016-11-20] MEDS ORDERED: ALBUMIN 5% 500 ML IV ONE (02:00)
[2016-11-20 05:10] LABS: BASE EXCESS -7.3 mEq/L (-2.5-2.5); BICARBONATE 16 mEq/L (22-26); END TIDAL CO2 18; IONIZED CALCIUM 1.22 MMOL/L (1.12-1.30); MEASURED OXYGEN SATURATION 99 % (92-95); O2 CONCENTRATIION 60 % (0-100); P/F RATIO 222 RATIO; PATIENT RATE 30; PCO2 25 mmHg (34-38); PIP 26; PO2 133 mmHg (65-75); PRESSURE SUPPORT 7; SIMV YES; TCO2 16 mEq/L (23-27)
[2016-11-20 05:12] LABS: % IMMATURE GRANULYOCYTES 0.3 % (0.0-1.1); ABSOLUTE IMMATURE GRANULOCYTES 0.04 10^3/uL (0.00-0.10); ADD DIFF? NO; ADD MORPH? NO; ADD SCAN? NO; ATYPICAL LYMPHOCYTE FLAG 0 (0-99); FRAGMENT RBC FLAG 0 (0-99); HEMATOCRIT 37.6 % (40.0-51.0); HEMOGLOBIN 13.4 g/dL (13.7-17.5); LEFT SHIFT FLG 10 (0-99); LIPEMIA HEMOLYSIS FLAG 90 (0-99); MEAN CELL HEMOGLOBIN 30.7 pg (27.9-34.1); MEAN CELL HEMOGLOBIN CONCENTR. 35.6 g/dL (32.4-36.7); MEAN CELL VOLUME 86.2 fL (81.5-99.8); MEAN PLATELET VOLUME 10.8 fL (8.7-11.7); PLATELET CLUMPS FLAG 0 (0-99); PLATELET COUNT 175 10^3/uL (150-400); RED BLOOD CELL COUNT 4.36 10^6/uL (4.40-6.38); RED CELL DISTRIBUTION WIDTH 12.5 % (11.5-15.2)
[2016-11-20 05:23] LABS: APTT 31.2 SEC (23.0-38.0); INR 1.31 (0.83-1.16); PROTIME(PATIENT) 16.3 SEC (12.0-15.0)
--- NOTE | 2016-11-20 06:08 | CPEKG ---
Heart Rate: 101 RR Interval: 594 P-R Interval: 160 QRSD Interval: 110 QT Interval: 388 QTC Interval: 503 P Shawnee: 74 QRS [place]nee: 34 T Wave [place]nee: 229 EKG Severity - ABNORMAL ECG - EKG Impression: SINUS TACHYCARDIA EKG Impression: MULTIPLE VENTRICULAR PREMATURE COMPLEXES EKG Impression: NONSPECIFIC INTRAVENTRICULAR CONDUCTION DELAY EKG Impression: INFERIOR INFARCT, AGE INDETERMINATE EKG Impression: ANTERIOR INFARCT, AGE INDETERMINATE Electronically Signed By: Juno Fowler 20-Nov-2016 10:37:39
[2016-11-20 06:32] LABS: ALBUMIN 3.4 g/dL (3.5-5.0); ANION GAP 16 mEq/L (8-16); ASPARTATE AMINOTRANSFERASE 456 IU/L (17-59); BILIRUBIN,TOTAL 1.1 mg/dL (0.1-1.4); CALCIUM 8.9 mg/dL (8.5-10.4); CARBON DIOXIDE 17 mEq/l (22-31); CHLORIDE 112 mEq/L (97-110); CHOLESTEROL 124 mg/dL (140-200); CHOLESTEROL/HDL RATIO 5.39 RATIO (1.00-4.97); CREATININE 0.8 mg/dL (0.7-1.3); GLOMERULAR FILTRATION RATE > 60; GLUCOSE 262 mg/dL (70-100); HIGH DENSITY LIPOPROTEIN 23 mg/dL (40-65); LACTATE DEHYDROGENASE 2300 IU/L (313-618); LDL/HDL RATIO 2.09 RATIO (1.00-3.64); LOW DENSITY LIPOPROTEIN 48 mg/dL (70-100); MAGNESIUM 1.8 mg/dL (1.6-2.3); NON-HIGH DENSITY LIPOPROTEIN 101 mg/dL (90-129); SODIUM 145 mEq/L (134-144); TRIGLYCERIDE 267 mg/dL (40-150); VERY LOW DENSITY LIPOPROTEINS 53 mg/dL (8-25)
[2016-11-20 06:33] LABS: POTASSIUM 2.2 mEq/L (3.5-5.2)
[2016-11-20 06:37] LABS: CK-MB INTERPRETATION POSITIVE (NEGATIVE)
[2016-11-20] MEDS: SODIUM BICARBONATE 150 MEQ in D5W 1,000 ML IV SCH (07:15)
[2016-11-20] MEDS: MIDAZOLAM HCL 50 MG in D5W 50 ML IV PRN (07:15)
[2016-11-20] MEDS: VECURONIUM BROMIDE 50 MG in D5W 50 ML IV SCH ×2 (07:20→18:19)
--- NOTE | 2016-11-20 07:37 | PDCARPN ---
Cardiology Progress Note Assessment/Plan: Assessment /plan: 51-year-old male with no known past medical history. Family history of coronary disease. Sustained a witnessed cardiac arrest yesterday. He had early CPR with return of spontaneous circulation, but required single defibrillation in the field. Intubated in the emergency department. Initial EKG with lateral ST elevation. Head CT / neck CT without significant abnormality. Taken emergently to the supervisor laboratory by Dr. Marquez. Please see his separate report. In summary, near total occlusion of all 3 major coronary arteries. Culprit lesion appeared to be left circumflex. The patient received 7 stents in all 3 major arteries. LV ejection fraction is 10% with elevated EDP. intra-aortic balloon pump was placed in the supervisor laboratory. Currently therapeutic on hypothermia after cardiac arrest protocol. Overnight has required dopamine and albumin. Did not tolerate dobutamine, with a drop in his pressure and increase in ventricular ectopy. Has had significant elevations in blood glucose and significant hypokalemia, both of which are being corrected. 1. Cardiac arrest / STEMI / hypothermia protocol: Peak troponin 72. profound cardiomyopathy. His maps have been stable and he continues to make reasonable urine output. Wean dopamine as possible. If he does require a 2nd pressure agent, use Levophed. If he becomes more unstable he will ultimately require increased LV support in the form of an Impella device. Continue IABP until rewarming is complete. Per therapeutic hypothermia protocol, will not be on Lovenox or heparin for the balloon pump. Start lovenox this evening as he rewarms. Continue dual antiplatelet therapy with Effient and aspirin. Continue high-dose statin. We will ultimately be a candidate for Diego-I and beta-edwardo. These agents are currently on hold due to cardiogenic shock. Echo today 2. Cardiogenic shock: His MAPs have been stable on dopamine. Wean dopamine as tolerated. Acidosis is improving, but his bicarb remains low. Actually did respond well to albumin. Prognosis remains guarded. 3. Elevated glucose: Change bicarb solution to saline without D5. Continue insulin protocol. Check hemoglobin A1c. 4. Elevated LFTs: likely shock liver. Improving 5. Hypokalemia: partly due to insulin therapy. Continue repletion. Change bicarb solution As above 6. Facial and oral trauma: Appreciate surgical and maxillofacial evaluation and treatment. Greater than 30 minutes was spent in critical care time. 11/20/16 07:38 Subjective: unable to obtain as the patient is intubated Reviewed/Discussed With: multidisciplinary team Objective: Vital Signs (8 Hrs) Temp Pulse Resp BP Pulse Ox 11/20/16 06:00 33.0 C L 68 30 H 97/46 L 100 11/20/16 05:00 33.0 C L 61 30 H 96/41 L 100 11/20/16 04:00 33.0 C L 61 30 H 98/44 L 100 11/20/16 03:00 33.0 C L 60 30 H 96/41 L 100 11/20/16 02:00 33.0 C L 55 L 30 H 94/40 L 100 11/20/16 01:00 33.0 C L 67 30 H 101/50 L 100 11/20/16 00:20 74 30 H 100 11/20/16 00:00 33.0 C L 74 30 H 97/47 L 100 Intake/Output (24 Hrs) 11/19/16 11/20/16 11/21/16 05:59 05:59 05:59 Intake Total 5238 Output Total 3305 Balance 1933 Intake: IV Intake (ml) 552 IV Infused (ml) 4686 Ns 1,000 ml @ 100 mls/hr 899 IV CONT YANDY Rx#: [id number] fentaNYL/NACL 100 ml @ 63 Per Protocol IV CONT YANDY Rx#:[id number] Midazolam HCl 50 mg In 71 D5w 50 ml @ Per Protocol IV CONT PRN Rx#: [id number] Vecuronium [place] 50 mg 71 In D5w 50 ml @ Per Protocol IV CONT YANDY Rx#: [id number] Insulin Regular Human 100 140 unit In Ns 100 ml @ As Directed IV CONT YANDY Rx#: [id number] D5w 1,000 ml @ 25 mls/hr 217 IV CONT YANDY Rx#: [id number] Sodium Bicarbonate 150 1022 meq In D5w 1,000 ml @ 100 mls/hr IV CONT YANDY Rx#: [id number] DOPamine/DEXTROSE 250 ml 603 @ Titrate IV CONT YANDY Rx# :[id number] Albumin 5% 500 ml @ As 500 Directed IV ONCE ONE Rx#: [id number] Magnesium Sulf 1 gm/ 100 Dextrose 100 ml @ 100 mls /hr IV ONCE ONE Rx#: [id number] Albumin 5% 500 ml @ As 500 Directed IV ONCE ONE Rx#: [id number] Output: Urine (ml) 2980 Catheter 2980 OG Drainage (ml) 325 Large Bore (>12 Cambodian) 325 Stomach Epps Sump Other: Weight 100 kg intubated, sedated, and paralyzed Nasal packing in place. Small amounts of coffee grounds being suctioned from OG tube. Significant lip trauma Regular rate and rhythm without murmur or gallop Lungs clear anteriorly and laterally Abdomen soft. Decreased bowel sounds No lower extremity edema. Skin is cool (HACA protocol) Result Diagrams: 11/20/16 05:00 11/20/16 05:00 Cardiac Labs: Cardiac Lab Results (72 Hrs) 11/20/16 11/19/16 11/19/16 05:00 23:20 19:55 CK-MB (CK-2) Fraction REJ 177.00 H 186.00 H Troponin I REJ 52.600 H 53.300 H 11/19/16 17:10 CK-MB (CK-2) Fraction 186.00 H Troponin I 72.000 H EKG: sinus tachycardia. Nonspecific interventricular conduction delay. Extensive anterolateral inferior SD Telemetry: Sinus rhythm with occasional PVCs ICD10 Worksheet Patient Problems: Problems Problem Status Diagnosed Lip laceration Acute STEMI (ST elevation myocardial infarction) Acute
[2016-11-20] MEDS ORDERED: MAGNESIUM SULF 1 GM/DEXTROSE 100 ML IV ONE ×2 (07:50→14:12)
[2016-11-20] MEDS: fentaNYL/NACL 100 ML IV SCH (07:59)
[2016-11-20] MEDS ORDERED: SODIUM BICARBONATE 150 MEQ in WATER FOR INJECTION,STERILE 1,000 ML IV SCH (08:00)
[2016-11-20] MEDS: RN MUST ADD CA+ & PHOS PROTOCOL TO WORKLIST AT 36 C MISC SCH (08:06)
[2016-11-20] MEDS: MAINTAIN PARALYTIC,ANALGESIA,SEDATION UNTIL TEMP IS 36C MISC SCH (08:06)
[2016-11-20] MEDS: RN MUST REMOVE K+ & MG+ PROTOCOL FROM WORKLIST AT 36 C MISC SCH (08:07)
--- NOTE | 2016-11-20 08:18 | NEUROPROG ---
Assessment: Pt in HACA protocol. No exam possible yet for anything reliable until rewarmed. One of our group with follow up tomorrow. Thanks Objective: Vital Signs Temp Pulse Resp BP Pulse Ox 33.1 C L 65 30 H 100/47 L 100 11/20/16 08:00 11/20/16 08:00 11/20/16 08:00 11/20/16 08:00 11/20/16 08:00 Laboratory Results 11/20/16 05:00 11/20/16 05:00 11/19/16 11/20/16 11/21/16 05:59 05:59 05:59 Intake Total 5238 Output Total 3305 145 Balance 1933 -145 PT 16.3 SEC (12.0-15.0) H 11/20/16 05:00 INR 1.31 (0.83-1.16) H 11/20/16 05:00 Allergies/Adverse Reactions: Unable to Assess Allergy (Unverified 11/19/16 13:29)
[2016-11-20] MEDS: ATORVASTATIN CALCIUM 40 MG TAB TUBE SCH (08:26)
[2016-11-20] MEDS: PRASUGREL HCL 10 MG TAB TUBE SCH (08:27)
[2016-11-20] MEDS: ASPIRIN 325 MG TAB TUBE SCH (08:27)
--- NOTE | 2016-11-20 08:33 | DX ---
Portable AP chest. 11/20/2016 at 6:23 AM History: f/u Comparison study: November 19, 2016 Findings: Interval increase in right lower lobe atelectasis with associated volume loss. Right hemidi aphragm is elevated. Improving interstitial edema within the left lung. ETT, NG, IABP appear stable. Impression: Increasing right lower lobe atelectasis. Improving interstitial pulmonary edema.
[2016-11-20] MEDS ORDERED: ASPIRIN EC 325 MG TAB PO SCH (09:00)
[2016-11-20 09:32] LABS: MAGNESIUM 1.6 mg/dL (1.6-2.3); POTASSIUM 2.8 mEq/L (3.5-5.2)
[2016-11-20] MEDS ORDERED: [UNRECOGNIZED DRUG - OTHER] IV SCH (10:00)
[2016-11-20] MEDS ORDERED: POTASSIUM CL IV SCH (10:00)
[2016-11-20] MEDS ORDERED: SODIUM BICARBONATE IV SCH (10:00)
[2016-11-20 10:01] LABS: CK-MB INTERPRETATION POSITIVE (NEGATIVE)
[2016-11-20] MEDS: LISINOPRIL 2.5 MG TAB TUBE SCH (10:35)
[2016-11-20] MEDS: ERTAPENEM 1 GM in NS 100 ML IV SCH (10:44)
--- NOTE | 2016-11-20 10:55 | ECHO ---
[id number] + + [address] : : [place] [address] : : [phone] + + Adult Echocardiographic Report + ---------+ :Name: BRIDGET PRUETT 1824Study Date: 11/20/2016 09:15 AM : : Hospital Admission Number: [id number] Radha donovan: 245: :: 1965 Gender: Male : :Age: 51 yrs Race: UN : :Reason For Study: eval LVFX : :History: S/P MN : + ---------+ MMode/2D Measurements & Calculations RVDd: 3.1 cm Normal Measurement Values: + + :LVIDd (3.5-5.7cm) IVSd (0.6-1.1cm) LVPWd (0.6-1.1cm) Aortic Root (2.0-3.7cm)Left Atrium (1.5-4.0cm): :LV Vol(d) (76-115ml) LV Vol(s) (29-48ml) Ejec Fraction (50-65%)PV Martin (0.6- 1.2m/s) TV Martin (0.4-1.0m/s) : :MV E Martin (0.8-1.0m/s)MV A Martin (0.3-1.0m/s)LVOT Martin (0.7-1.2m/s) Asc Ao Martin ( 0.9-1.8m/s) : + + Doppler Measurements & Calculations Ao V2 max: 97.7 cm/sec Ao max P.8 mmHg Left Ventricle The left ventricle is normal in size. There is normal left ventricular wall thickness. Left ventricular systolic function is severely reduced. Visual estimate of the left ventricular ejection fraction is 15-20% while on balloon pump. The base of the heart is marta; mid to distal segments are hypokinetic. [place] is hypokinetic. Right Ventricle The right ventricle is normal size. The basal to mid RV free wall is marta normally and the distal RV free wall is mildly hypokinetic. Atria The left atrial size is normal. Right atrial size is normal. Mitral Valve The mitral valve is normal in structure and function. There is no mitral regurgitation noted. Tricuspid Valve The tricuspid valve is normal in structure and function. There is trace tricuspid regurgitation. Aortic Valve The aortic valve is not well visualized. There is no aortic stenosis. There is no aortic insufficiency. Pulmonic Valve The pulmonic valve is not well visualized. Great Vessels The aortic root is not well visualized. Pericardium/Pleural trivial pericardial effusion. Conclusion Limted acoustical window. Patient on balloon pump at time of study. no comparison echo was available at time of my reading. Left ventricular systolic function is severely reduced. Visual estimate of the left ventricular ejection fraction is 15-20% while on balloon pump. The base of the heart is marta; mid to distal segments are hypokinetic. [place] is hypokinetic. The basal to mid RV free wall is marta normally and the distal RV free wall is mildly hypokinetic. There is trace tricuspid regurgitation. The aortic valve is not well visualized. trivial pericardial effusion. Limted acoustical window. Patient on balloon pump at time of study. no comparison echo was available at time of my reading Final Reading Physician: Marni Hutton signed on 11/20/2016 10:54 AM Ordering Physician: Waldo Marquez Performed By: Dulce Strong
[2016-11-20] MEDS: CARVEDILOL 3.125 MG TAB PO SCH (11:22)
--- NOTE | 2016-11-20 12:56 | PDINTPN ---
Assembly Associate Progress Note Assessment/Plan: Assessment: Status post [id number] cardiac/VFib arrest, CPR. Acute myocardial infarction. Status post multiple stents. Ischemic cardiomyopathy: Ejection fraction possibly a little bit better today on balloon pump: 20%? On full-dose anticoagulation, anti-platelet agents, intra- aortic balloon pump. HACA per protocols Acute respiratory failure. Secondary to 1. Possible aspiration pneumonia. On Invanz. Possible anoxic injury. Too early to assess. Paralyzed and sedated currently. May do well as CPR was immediate and apparently high quality and there is no evidence of major ischemic event to kidneys, liver, etc. Metabolic: Hypokalemia, hyperglycemia, hypomagnesemia, etc. Per protocols. Metabolic acidosis. Improved. On bicarb drip. Status post lip laceration, sutured. Associated with loss of teeth and nasal bleeding. Status post packing. Appreciate Trauma surgery help. Plan: Continue aggressive supportive care, ventilatory support, cardiac support as we are doing. Continue antibiotics. Follow lab per HACA protocols. Began rewarming approximately 5:00 p.m. this evening. Cardiology and Neurology following. 1 hour of critical care time spent directly with the patient. Subjective: Paralyzed, unresponsive, on ventilator, intra-aortic balloon pump, multiple drips. Objective: Vital Signs Temp Pulse Resp BP Pulse Ox 33 C L 68 30 H 107/55 L 100 11/20/16 12:00 11/20/16 12:00 11/20/16 12:00 11/20/16 12:00 11/20/16 12:00 Microbiology 11/20/16 00:30 - Final Sputum, Induced/Suctioned Laboratory Results 11/20/16 05:00 11/20/16 09:05 11/19/16 11/20/16 11/21/16 05:59 05:59 05:59 Intake Total 5238 Output Total 3305 370 Balance 1933 -370 PT 16.3 SEC (12.0-15.0) H 11/20/16 05:00 INR 1.31 (0.83-1.16) H 11/20/16 05:00 Laboratory Tests 11/20/16 11/20/16 11/20/16 05:00 09:05 11:33 PT 16.3 H INR 1.31 H APTT 31.2 pCO2 25 L pO2 133 H Total CO2 16 L ABG pH 7.40 O2 Concentration % 60 Set Respiration Rate 30 Tidal Volume 650 PEEP 7 Pressure Support 7 Sodium 145 H Potassium 2.2 L* Chloride 112 H Carbon Dioxide 17 L Anion Gap 16 BUN 16 Creatinine 0.8 Glucose 262 H POC Glucose 148 H Calcium 8.9 Phosphorus < 0.5 L D Magnesium 1.8 1.6 Total Bilirubin 1.1 AST 456 H CK-MB (CK-2) Fraction 185.00 H Troponin I 40.200 H CXR: Increasing infiltrate, atelectasis or effusion at right base. Multiple lines and tubes in good position. Physical Exam - Physical Exam General Appearance: unresponsive, other (Sedated, paralyzed, on ventilator. Multiple drips: Vecuronium, Versed, bicarb, dopamine, fentanyl, etc.) EENT: ET tube, other (OG in place, and nose packed, lip sutured. Pupils appear equal and reactive) Neck: normal inspection (No obvious JVD, relatively large neck) Respiratory: decreased breath sounds (Bilaterally, coarse breath sounds.), rales (At bases), No wheezing Cardiac/Chest: regular rate, rhythm (Balloon pump in place at 1:21 a.m..) Abdomen: soft, No normal bowel sounds (Decreased, few present) Male Genitalia: other ([place] catheter in place. Good urine output, over 3 L last 18 hours.) Skin: normal color, warm/dry Extremities: pedal edema (Trace +) Neuro/Psych: cognition abnormalities (Can't assess), No no motor/sensory deficits (Can't assess) ICD10 Worksheet Patient Problems: Problems Problem Status Diagnosed Lip laceration Acute STEMI (ST elevation myocardial infarction) Acute
[2016-11-20 13:45] LABS: ANION GAP 11 mEq/L (8-16); CALCIUM 8.7 mg/dL (8.5-10.4); CARBON DIOXIDE 21 mEq/l (22-31); CHLORIDE 113 mEq/L (97-110); CREATININE 0.7 mg/dL (0.7-1.3); GLOMERULAR FILTRATION RATE > 60; GLUCOSE 111 mg/dL (70-100); MAGNESIUM 1.7 mg/dL (1.6-2.3); POTASSIUM 4.3 mEq/L (3.5-5.2); SODIUM 145 mEq/L (134-144)
[2016-11-20] MEDS ORDERED: MAGNESIUM SULF 1 GM/DEXTROSE 100 ML BAG IV ONE (14:16)
[2016-11-20] MEDS: PETROLAT,WHT/MIN OIL/SOD CHL 3.5 GM OPHT.OINT EACHEYE PRN (15:39)
[2016-11-20] MEDS ORDERED: PROTOCOL K PHOSPHATE 1 DOSE IV PRN (16:55)
[2016-11-20] MEDS ORDERED: PROTOCOL CALCIUM 1 DOSE IV PRN (16:55)
[2016-11-20 17:11] LABS: % IMMATURE GRANULYOCYTES 0.3 % (0.0-1.1); ABSOLUTE IMMATURE GRANULOCYTES 0.04 10^3/uL (0.00-0.10); ADD DIFF? NO; ADD MORPH? NO; ADD SCAN? NO; ATYPICAL LYMPHOCYTE FLAG 0 (0-99); FRAGMENT RBC FLAG 0 (0-99); HEMATOCRIT 36.6 % (40.0-51.0); HEMOGLOBIN 13.4 g/dL (13.7-17.5); LEFT SHIFT FLG 20 (0-99); LIPEMIA HEMOLYSIS FLAG 90 (0-99); MEAN CELL HEMOGLOBIN 30.5 pg (27.9-34.1); MEAN CELL HEMOGLOBIN CONCENTR. 36.6 g/dL (32.4-36.7); MEAN CELL VOLUME 83.2 fL (81.5-99.8); MEAN PLATELET VOLUME 10.8 fL (8.7-11.7); PLATELET CLUMPS FLAG 0 (0-99); PLATELET COUNT 186 10^3/uL (150-400); RED CELL DISTRIBUTION WIDTH 12.4 % (11.5-15.2)
[2016-11-20 17:12] LABS: BASE EXCESS -1.3 mEq/L (-2.5-2.5); BICARBONATE 19 mEq/L (22-26); IONIZED CALCIUM 1.12 MMOL/L (1.12-1.30); MEASURED OXYGEN SATURATION 99 % (92-95); PO2 106 mmHg (65-75); TCO2 20 mEq/L (23-27)
[2016-11-20 17:15] LABS: P/F RATIO 265 RATIO; PCO2 19 mmHg (34-38); SIMV YES
[2016-11-20 17:16] LABS: END TIDAL CO2 18; O2 CONCENTRATIION 40 % (0-100); PATIENT RATE 26; PRESSURE SUPPORT 7
[2016-11-20 17:20] LABS: INR 1.34 (0.83-1.16); PROTIME(PATIENT) 16.6 SEC (12.0-15.0)
[2016-11-20 17:21] LABS: APTT 31.8 SEC (23.0-38.0)
[2016-11-20 17:29] LABS: ALANINE AMINOTRANSFERASE 365 IU/L (21-72); ALBUMIN 3.1 g/dL (3.5-5.0); ALKALINE PHOSPHATASE 49 IU/L (38-126); ANION GAP 10 mEq/L (8-16); ASPARTATE AMINOTRANSFERASE 291 IU/L (17-59); BILIRUBIN,TOTAL 1.3 mg/dL (0.1-1.4); BILIRUBIN-CONJUGATED 0.4 mg/dL (0.0-0.5); BILIRUBIN-UNCONJUGATED 0.9 mg/dL (0.0-1.1); CALCIUM 8.5 mg/dL (8.5-10.4); CARBON DIOXIDE 22 mEq/l (22-31); CHLORIDE 110 mEq/L (97-110); CREATININE 0.6 mg/dL (0.7-1.3); GLOMERULAR FILTRATION RATE > 60; GLUCOSE 142 mg/dL (70-100); MAGNESIUM 1.9 mg/dL (1.6-2.3); POTASSIUM 4.8 mEq/L (3.5-5.2); SODIUM 142 mEq/L (134-144); TOTAL PROTEIN 5.5 g/dL (6.3-8.2)
[2016-11-20 17:41] LABS: CK-MB INTERPRETATION POSITIVE (NEGATIVE)
[2016-11-20] MEDS: CARVEDILOL 3.125 MG TAB TUBE SCH (17:59)
[2016-11-20] MEDS: ENOXAPARIN 100 MG/ML SYR SC SCH (17:59)
[2016-11-20 20:19] LABS: BICARBONATE 21 mEq/L (22-26); MEASURED OXYGEN SATURATION 97 % (92-95); PCO2 29 mmHg (34-38); PO2 77 mmHg (65-75); TCO2 22 mEq/L (23-27)
[2016-11-20 20:20] LABS: INSP PRESSURE 23.2; O2 CONCENTRATIION 40 % (0-100); P/F RATIO 193 RATIO; PATIENT RATE 18; PRESSURE SUPPORT 7
[2016-11-20 21:52] LABS: POTASSIUM 5.8 mEq/L (3.5-5.2)
[2016-11-20] MEDS ORDERED: FUROSEMIDE 40 MG/4 ML VIAL IVP ONE (23:30)
[2016-11-20] MEDS ORDERED: SODIUM POLY SULF 15 GM/60 ML BOTTLE TUBE ONE (23:30)
[2016-11-21] MEDS: ENOXAPARIN 100 MG/ML SYR SC SCH ×2 (00:10→09:54)
[2016-11-21 02:26] LABS: HEMOGLOBIN A1C 6.3 % (4.0-6.0)
[2016-11-21] MEDS: VECURONIUM BROMIDE 50 MG in D5W 50 ML IV SCH (04:38)
[2016-11-21] MEDS: fentaNYL/NACL 100 ML IV SCH ×2 (05:17→17:09)
[2016-11-21 05:28] LABS: BASE EXCESS -0.7 mEq/L (-2.5-2.5); BICARBONATE 23 mEq/L (22-26); IONIZED CALCIUM 1.13 MMOL/L (1.12-1.30); MEASURED OXYGEN SATURATION 98 % (92-95); PCO2 32 mmHg (34-38); PO2 89 mmHg (65-75); TCO2 24 mEq/L (23-27)
[2016-11-21 05:29] LABS: % IMMATURE GRANULYOCYTES 0.4 % (0.0-1.1); ABSOLUTE IMMATURE GRANULOCYTES 0.06 10^3/uL (0.00-0.10); ADD DIFF? NO; ADD MORPH? NO; ADD SCAN? NO; ATYPICAL LYMPHOCYTE FLAG 0 (0-99); FRAGMENT RBC FLAG 0 (0-99); HEMATOCRIT 36.8 % (40.0-51.0); LEFT SHIFT FLG 50 (0-99); LIPEMIA HEMOLYSIS FLAG 90 (0-99); MEAN CELL HEMOGLOBIN 30.2 pg (27.9-34.1); MEAN CELL HEMOGLOBIN CONCENTR. 35.3 g/dL (32.4-36.7); MEAN CELL VOLUME 85.4 fL (81.5-99.8); MEAN PLATELET VOLUME 10.8 fL (8.7-11.7); PLATELET CLUMPS FLAG 0 (0-99); PLATELET COUNT 181 10^3/uL (150-400); RED BLOOD CELL COUNT 4.31 10^6/uL (4.40-6.38); RED CELL DISTRIBUTION WIDTH 13.2 % (11.5-15.2)
[2016-11-21 05:32] LABS: O2 CONCENTRATIION 40 % (0-100); P/F RATIO 223 RATIO; PATIENT RATE 18; PRESSURE SUPPORT 7; SIMV YES
[2016-11-21 05:33] LABS: PIP 24.6
[2016-11-21 05:53] LABS: ALANINE AMINOTRANSFERASE 328 IU/L (21-72); ALBUMIN 3.1 g/dL (3.5-5.0); ALKALINE PHOSPHATASE 53 IU/L (38-126); ANION GAP 8 mEq/L (8-16); ASPARTATE AMINOTRANSFERASE 206 IU/L (17-59); BILIRUBIN,TOTAL 1.1 mg/dL (0.1-1.4); CALCIUM 8.3 mg/dL (8.5-10.4); CARBON DIOXIDE 24 mEq/l (22-31); CHLORIDE 108 mEq/L (97-110); CREATININE 0.7 mg/dL (0.7-1.3); GLOMERULAR FILTRATION RATE > 60; GLUCOSE 138 mg/dL (70-100); MAGNESIUM 1.8 mg/dL (1.6-2.3); POTASSIUM 5.2 mEq/L (3.5-5.2); SODIUM 140 mEq/L (134-144); TOTAL PROTEIN 5.5 g/dL (6.3-8.2)
[2016-11-21 05:59] LABS: INR 1.39 (0.83-1.16)
[2016-11-21 06:00] LABS: APTT 37.1 SEC (23.0-38.0)
[2016-11-21] MEDS ORDERED: PROTOCOL CALCIUM 1 DOSE IV PRN (07:43)
[2016-11-21] MEDS ORDERED: MAGNESIUM SULF 1 GM/DEXTROSE 100 ML IV ONE (07:46)
--- NOTE | 2016-11-21 08:47 | CPEKG ---
Heart Rate: 94 RR Interval: 638 QRSD Interval: 92 QT Interval: 420 QTC Interval: 526 QRS [place]: -2 T Wave [place]: -82 EKG Severity - ABNORMAL ECG - EKG Impression: NORMAL SINUS RHYTHM EKG Impression: CONSIDER INFERIOR INFARCT EKG Impression: ANTERIOR INFARCT, AGE INDETERMINATE EKG Impression: BORDERLINE T ABNORMALITIES, INFERIOR LEADS EKG Impression: PROLONGED QT INTERVAL EKG Impression: LOW VOLTAGE Electronically Signed By: Elie Torres 23-Nov-2016 08:43:07
--- NOTE | 2016-11-21 08:51 | PDINTPN ---
Quality Assurance Monitor Final Progress Note Assessment/Plan: Assessment/Plan: * Status post adg-al-jbcgewrj cardiac/VFib arrest, CPR. * Acute myocardial infarction. Status post multiple stents. Ischemic cardiomyopathy: Ejection fraction possibly a little bit better today on balloon pump: 20%? On full-dose anticoagulation, anti-platelet agents, intra- aortic balloon pump. * HACA per protocols * CMP-EF approx 10% * Acute respiratory failure. Secondary to 1. -continue vent. No changes for now * Possible aspiration pneumonia. On Invanz. * Possible anoxic injury. Too early to assess. Paralyzed and sedated currently. May do well as CPR was immediate and apparently high quality and there is no evidence of major ischemic event to kidneys, liver, etc. * Metabolic: Hypokalemia, hyperglycemia, hypomagnesemia, etc. Per protocols. * Metabolic acidosis. Resolved * Status post lip laceration, sutured. Associated with loss of teeth and nasal bleeding. Status post packing. Appreciate Trauma surgery help. * Neuro-currently paralyzed and sedated. Reassess once warm Case discussed with Nurse and RT. 40 min of critical care time spent with patient Subjective: Sedated and paralyzed Objective: Vital Signs Temp Pulse Resp BP Pulse Ox 36 C 99 18 87/45 L 96 11/21/16 08:00 11/21/16 08:00 11/21/16 08:00 11/21/16 08:00 11/21/16 08:00 Microbiology 11/20/16 00:30 - Final Sputum, Induced/Suctioned Laboratory Results 11/21/16 05:13 11/21/16 05:13 11/20/16 11/21/16 11/22/16 05:59 05:59 05:59 Intake Total 5238 4810.9 Output Total 3305 1490 130 Balance 1933 3320.9 -130 PT 17.0 SEC (12.0-15.0) H 11/21/16 05:13 INR 1.39 (0.83-1.16) H 11/21/16 05:13 CXR-reviewed by myself. ETT okay. Right effusion present. Physical Exam - Physical Exam General Appearance: obtunded, No alert EENT: PERRL/EOMI, normal ENT inspection, ET tube Neck: non-tender, full range of motion Respiratory: decreased breath sounds, No respiratory distress, No wheezing Cardiac/Chest: normal peripheral pulses, regular rate, rhythm, systolic murmur Peripheral Pulses: 2+: carotid (R), carotid (L), femoral (R), femoral (L), dorsalis-pedis (R), dorsalis-pedis (L) Abdomen: normal bowel sounds, non-tender, soft Male Genitalia: deferred Rectal: deferred Skin: normal color, warm/dry ICD10 Worksheet Patient Problems: Problems Problem Status Diagnosed Lip laceration Acute STEMI (ST elevation myocardial infarction) Acute
[2016-11-21] MEDS: MIDAZOLAM HCL 50 MG in D5W 50 ML IV PRN (09:12)
[2016-11-21] MEDS: ASPIRIN 325 MG TAB TUBE SCH (09:13)
[2016-11-21] MEDS: ATORVASTATIN CALCIUM 40 MG TAB TUBE SCH (09:13)
[2016-11-21] MEDS: PRASUGREL HCL 10 MG TAB TUBE SCH (09:13)
[2016-11-21 09:14] LABS: IONIZED CALCIUM 1.12 MMOL/L (1.12-1.30)
[2016-11-21] MEDS: PETROLAT,WHT/MIN OIL/SOD CHL 3.5 GM OPHT.OINT EACHEYE PRN (09:25)
--- NOTE | 2016-11-21 09:30 | NEUROPROG ---
Assessment: Received consult notification from Dr. Soni. Pt still not rewarmed to goal temp, still sedated and paralyzed. Please reconsult once patient at goal temp and off sedatives/paralytics. Ideally, prognostication would take place 72hours after rewarming to goal temp. Objective: Vital Signs Temp Pulse Resp BP Pulse Ox 36.2 C 86 18 86/41 L 98 11/21/16 09:00 11/21/16 09:00 11/21/16 09:00 11/21/16 09:00 11/21/16 09:00 Microbiology 11/20/16 00:30 - Final Sputum, Induced/Suctioned Laboratory Results 11/21/16 05:13 11/20/16 11/21/16 11/22/16 05:59 05:59 05:59 Intake Total 5238 4810.9 Output Total 3305 1490 165 Balance 1933 3320.9 -165 PT 17.0 SEC (12.0-15.0) H 11/21/16 05:13 INR 1.39 (0.83-1.16) H 11/21/16 05:13 Allergies/Adverse Reactions: pine trees Allergy (Uncoded 11/20/16 11:33)
[2016-11-21] MEDS ORDERED: CALCIUM GLUCONATE 50 ML IV ONE (09:38)
[2016-11-21 09:39] LABS: MAGNESIUM 1.7 mg/dL (1.6-2.3); POTASSIUM 4.8 mEq/L (3.5-5.2)
[2016-11-21] MEDS: RN MUST REMOVE K+ & MG+ PROTOCOL FROM WORKLIST AT 36 C MISC SCH (09:57)
[2016-11-21] MEDS: LISINOPRIL 2.5 MG TAB TUBE SCH (09:57)
[2016-11-21] MEDS: MAINTAIN PARALYTIC,ANALGESIA,SEDATION UNTIL TEMP IS 36C MISC SCH (09:57)
[2016-11-21] MEDS: RN MUST ADD CA+ & PHOS PROTOCOL TO WORKLIST AT 36 C MISC SCH (09:57)
[2016-11-21] MEDS: CARVEDILOL 3.125 MG TAB TUBE SCH ×2 (09:57→14:43)
[2016-11-21] MEDS: ERTAPENEM 1 GM in NS 100 ML IV SCH (10:00)
--- NOTE | 2016-11-21 10:27 | DX ---
Portable AP Supine Chest, 6:12 AM on November 21, 2016 Clinical history: 51-year-old male in the ICU presenting for follow up of respiratory status. Comparison study: Chest, dated to November 20, 2016, at 6:23 AM. Findings: The patient is slightly rotated to the right. The endotracheal tube, esophagogastric tube, and intra-aortic balloon pump are stable in position. There is a catheter projected to the right of m idline in the upper abdomen near the cavoatrial junction. Telemetry monitoring lead lines are present . The cardiac silhouette is at the upper limits of normal, given the portable AP supine technique. Th ere is elevation of the right hemidiaphragm with indistinctness, consistent with some right lower lob e atelectasis infiltrate and/or pleural fluid. The pulmonary vasculature is stable, and there is no p neumothorax. Impression: Radiographically similar to November 20, 2016.
[2016-11-21] MEDS: NOREPINEPHRINE BITARTRATE 16 MG in D5W 250 ML IV SCH (12:14)
[2016-11-21 13:55] LABS: MAGNESIUM 1.9 mg/dL (1.6-2.3); POTASSIUM 4.7 mEq/L (3.5-5.2)
[2016-11-21] MEDS ORDERED: DEXMEDETOMIDINE HCL 400 MCG in NS 100 ML IV SCH (15:00)
[2016-11-21] MEDS ORDERED: ALBUMIN 5% 250 ML BOTTLE IV ONE (16:01)
[2016-11-21] MEDS ORDERED: ALBUMIN 25% 100 ML SOLN IV ONE (16:02)
[2016-11-21] MEDS: PROPOFOL/EMULSION 100 ML IV SCH (16:10)
[2016-11-21] MEDS ORDERED: ALBUMIN 25% 100 ML IV ONE (16:30)
[2016-11-21 16:37] LABS: BASE EXCESS -2.7 mEq/L (-2.5-2.5); BICARBONATE 21 mEq/L (22-26); IONIZED CALCIUM 1.12 MMOL/L (1.12-1.30); MEASURED OXYGEN SATURATION 96 % (92-95); PCO2 33 mmHg (34-38); PO2 80 mmHg (65-75); TCO2 22 mEq/L (23-27)
[2016-11-21 16:38] LABS: SIMV YES
[2016-11-21 16:39] LABS: END TIDAL CO2 31; O2 CONCENTRATIION 40 % (0-100); P/F RATIO 200 RATIO; PATIENT RATE 7; PRESSURE SUPPORT 7
[2016-11-21 16:46] LABS: % IMMATURE GRANULYOCYTES 0.8 % (0.0-1.1); ABSOLUTE IMMATURE GRANULOCYTES 0.14 10^3/uL (0.00-0.10); ADD DIFF? NO; ADD MORPH? NO; ADD SCAN? YES; ATYPICAL LYMPHOCYTE FLAG 0 (0-99); FRAGMENT RBC FLAG 0 (0-99); HEMATOCRIT 36.3 % (40.0-51.0); HEMOGLOBIN 12.4 g/dL (13.7-17.5); LIPEMIA HEMOLYSIS FLAG 90 (0-99); MEAN CELL HEMOGLOBIN 30.2 pg (27.9-34.1); MEAN CELL HEMOGLOBIN CONCENTR. 34.2 g/dL (32.4-36.7); MEAN CELL VOLUME 88.3 fL (81.5-99.8); MEAN PLATELET VOLUME 11.4 fL (8.7-11.7); PLATELET CLUMPS FLAG 0 (0-99); PLATELET COUNT 214 10^3/uL (150-400); RED BLOOD CELL COUNT 4.11 10^6/uL (4.40-6.38); RED CELL DISTRIBUTION WIDTH 13.7 % (11.5-15.2)
[2016-11-21 16:49] LABS: LEFT SHIFT FLG 110 (0-99)
[2016-11-21 16:52] LABS: ALANINE AMINOTRANSFERASE 281 IU/L (21-72); ALBUMIN 3.4 g/dL (3.5-5.0); ALKALINE PHOSPHATASE 58 IU/L (38-126); ANION GAP 11 mEq/L (8-16); ASPARTATE AMINOTRANSFERASE 158 IU/L (17-59); BILIRUBIN,TOTAL 1.1 mg/dL (0.1-1.4); CALCIUM 8.5 mg/dL (8.5-10.4); CARBON DIOXIDE 22 mEq/l (22-31); CHLORIDE 105 mEq/L (97-110); CREATININE 0.8 mg/dL (0.7-1.3); GLOMERULAR FILTRATION RATE > 60; GLUCOSE 149 mg/dL (70-100); MAGNESIUM 1.9 mg/dL (1.6-2.3); POTASSIUM 4.6 mEq/L (3.5-5.2); SODIUM 138 mEq/L (134-144); TOTAL PROTEIN 5.6 g/dL (6.3-8.2)
[2016-11-21] MEDS ORDERED: LIDOCAINE 1% 30 ML SDV ONE (16:54)
[2016-11-21] MEDS ORDERED: HEPARIN 10,000 UNIT/10 ML MDV ONE (16:54)
[2016-11-21 17:03] LABS: INR 1.43 (0.83-1.16); PROTIME(PATIENT) 17.4 SEC (12.0-15.0)
[2016-11-21 17:04] LABS: APTT 43.6 SEC (23.0-38.0)
[2016-11-21] MEDS: INSULIN REGULAR HUMAN 100 UNIT in NS 100 ML IV SCH (17:10)
[2016-11-21 17:41] LABS: SCAN POSITIVE
[2016-11-21 17:47] LABS: GIANT PLATELETS PRESENT; LARGE PLATELETS PRESENT; PLATELET ESTIMATE ADEQUATE (ADEQ)
[2016-11-21] MEDS ORDERED: MIDAZOLAM 2 MG/2 ML VIAL ONE ×3 (17:50→19:15)
[2016-11-21] MEDS ORDERED: IOPAMIDOL (ISOVUE 370) 100 ML BTL IV ONE ×2 (19:13→19:45)
[2016-11-21] MEDS ORDERED: HEPARIN 10,000 UNIT/10 ML MDV IVP ONE (20:12)
[2016-11-21] MEDS ORDERED: HEPARIN 10,000 UNIT/10 ML MDV IVP PRN (20:12)
[2016-11-21] MEDS ORDERED: CEFAZOLIN 1 GM/DEXTROSE/50 ML BAG IV ONE (20:23)
[2016-11-21] MEDS ORDERED: HEPARIN/DEXTROSE 500 ML IV SCH (20:30)
[2016-11-21 21:56] LABS: MIXED VENOUS O2 SATURATION 60 % (65-75)
[2016-11-21 22:14] LABS: HEMATOCRIT 33.9 % (40.0-51.0); HEMOGLOBIN 11.6 g/dL (13.7-17.5)
[2016-11-21 22:26] LABS: INR 1.46 (0.83-1.16); PROTIME(PATIENT) 17.7 SEC (12.0-15.0)
[2016-11-21 22:27] LABS: BASE EXCESS -1.9 mEq/L (-2.5-2.5); BICARBONATE 22 mEq/L (22-26); MEASURED OXYGEN SATURATION 100 % (92-95); PCO2 36 mmHg (34-38); PO2 260 mmHg (65-75); TCO2 23 mEq/L (23-27)
[2016-11-21 22:29] LABS: END TIDAL CO2 39; O2 CONCENTRATIION 100 % (0-100); P/F RATIO 260 RATIO; PATIENT RATE 18; PRESSURE SUPPORT 7; SIMV YES
[2016-11-21 22:31] LABS: ANION GAP 8 mEq/L (8-16); CALCIUM 8.3 mg/dL (8.5-10.4); CARBON DIOXIDE 23 mEq/l (22-31); CHLORIDE 104 mEq/L (97-110); CREATININE 0.8 mg/dL (0.7-1.3); GLOMERULAR FILTRATION RATE > 60; GLUCOSE 186 mg/dL (70-100); SODIUM 135 mEq/L (134-144)
[2016-11-21] MEDS ORDERED: ONDANSETRON 4 MG/2 ML VIAL IVP PRN (22:40)
[2016-11-21] MEDS ORDERED: OXYCODONE/APAP 5/325 TAB PO PRN (22:40)
[2016-11-21] MEDS ORDERED: HYDROCODONE/APAP 5/325 TAB PO PRN (22:40)
[2016-11-21] MEDS ORDERED: NITROGLYCERIN 0.4 MG BTL SL PRN (22:40)
[2016-11-21] MEDS ORDERED: ATROPINE SULFATE 1 MG/10 ML SYR IVP PRN (22:40)
[2016-11-21] MEDS ORDERED: SILVER NITRATE APPLICATOR 1 APPL TP ONE (23:48)
[2016-11-22 01:29] LABS: APTT 67.3 SEC (23.0-38.0)
[2016-11-22 01:47] VITALS: RESP 18
[2016-11-22] MEDS ORDERED: CALCIUM GLUCONATE 1 GM in D5W 50 ML IV ONE (06:00)
[2016-11-22 06:19] LABS: HEMATOCRIT 29.9 % (40.0-51.0); HEMOGLOBIN 10.2 g/dL (13.7-17.5); MEAN CELL HEMOGLOBIN 30.6 pg (27.9-34.1); MEAN CELL HEMOGLOBIN CONCENTR. 34.1 g/dL (32.4-36.7); MEAN CELL VOLUME 89.8 fL (81.5-99.8); RED BLOOD CELL COUNT 3.33 10^6/uL (4.40-6.38)
--- NOTE | 2016-11-22 06:33 | CPIP ---
[f rep st] INVASIVE CARDIAC PROCEDURE DATE OF PROCEDURE: 11/21/2016 PROCEDURE: 1. Coronary angiography. 2. Right heart catheterization. 3. Placement of Impella CP in place of intra-aortic balloon pump. INDICATION: The patient is a 51-year-old gentleman who was admitted with an acute myocardial infarc tion. He was found to have an occluded RCA, circumflex, and left anterior descending coronary arter ies. He was treated with percutaneous coronary intervention of all 3 blood vessels and placed on HO CA protocol. An intra-aortic balloon pump was placed for hemodynamic support. Initially patient di d well following the procedure. However, he became hypotensive with decreased urine output and requ ired increased pressor support. He was brought back to the cardiac catheterization laboratory for t he above-noted procedures. CORONARY ANGIOGRAPHY: A 6-[place] JL4 was advanced to the left main coronary artery and images obtai raad. The left main coronary artery bifurcated into the left anterior descending coronary artery and circumflex coronary arteries. The left main coronary artery appeared normal. The left anterior de scending coronary artery gave rise to 2 prominent diagonal branches. The left anterior descending c oronary artery was stented in the proximal and mid segments. The previously placed stents were wide ly patent with no evidence of in-stent restenosis or thrombus. The first diagonal artery was also s tented. The previously placed stent was widely patent with no evidence of in-stent restenosis. The second diagonal artery had evidence of ostial thrombosis with LAILA 2.5 flow. The circumflex oneill ry artery was previously stented in the proximal and mid segments. The circumflex coronary artery s tents were widely patent with no evidence of in-stent restenosis. A 6-[place] JR4 was advanced to th e right coronary artery and images obtained. The right coronary artery was previously stented in th e mid to distal segments. The previously placed stents were widely patent with no evidence of in-st ent restenosis. RIGHT HEART CATHETERIZATION: Right heart catheter was advanced in the right atrium and pressure obt ained. The right atrial pressure was 18 mmHg. The catheter was then advanced into the right ventri kiki and pressure obtained. The right ventricular pressure was 44/16 mmHg. Catheter was then advanc ed in the pulmonary artery position and pressure obtained. The pulmonary artery pressure was 45/29 mmHg. Catheter was then advanced in the wedge position and pulmonary capillary wedge pressure was o btained. Pulmonary capillary wedge pressure was 28 mmHg. Cardiac output and cardiac index were not obtained until after placement of Impella device. The cardiac output was 4.85. The cardiac index was 2.17. Here again, this was post placement of Impella device. PLACEMENT OF IMPELLA DEVICE: The intra-aortic balloon pump was taken out of the right common femora l artery and a 9-[place] dilator sheath was placed. The 9-[place] dilator sheath was withdrawn and a 10-[place] introducer sheath was placed. The 10-[place] introducer sheath was later exchanged for a 1 2-[place] dilator, followed by a 14-[place] sheath. The Impella was advanced into the left ventricle and position verified and settings at T8. The 14-[place] sheath was then withdrawn and the 9-[place] dilator step-down was placed. COMPLICATIONS: None. CONCLUSIONS: 1. Patent LAD, circumflex, and RCA stents. 2. Cardiogenic shock with evidence of volume overload by right heart catheterization. 3. Status post successful placement of Impella device. /[id number]/MODL
[2016-11-22] MEDS ORDERED: NS 1,000 ML IV SCH (07:00)
[2016-11-22] MEDS ORDERED: MIDAZOLAM 2 MG/2 ML VIAL IVP ONE (07:00)
[2016-11-22] MEDS ORDERED: ALBUMIN 5% 500 ML IV ONE ×2 (07:00→12:30)
[2016-11-22 07:33] LABS: IONIZED CALCIUM 1.11 MMOL/L (1.12-1.30)
[2016-11-22 07:53] LABS: ALANINE AMINOTRANSFERASE 261 IU/L (21-72); ALBUMIN 2.9 g/dL (3.5-5.0); ALKALINE PHOSPHATASE 55 IU/L (38-126); ANION GAP 8 mEq/L (8-16); ASPARTATE AMINOTRANSFERASE 230 IU/L (17-59); BILIRUBIN,TOTAL 1.9 mg/dL (0.1-1.4); CARBON DIOXIDE 26 mEq/l (22-31); CHLORIDE 110 mEq/L (97-110); CREATININE 0.9 mg/dL (0.7-1.3); GLOMERULAR FILTRATION RATE > 60; GLUCOSE 136 mg/dL (70-100); MAGNESIUM 1.8 mg/dL (1.6-2.3); POTASSIUM 4.3 mEq/L (3.5-5.2); SODIUM 144 mEq/L (134-144)
[2016-11-22 08:19] LABS: PCO2 42 mmHg (34-38); PO2 81 mmHg (65-75); TCO2 26 mEq/L (23-27)
[2016-11-22 08:20] LABS: BASE EXCESS 0.9 mEq/L (-2.5-2.5); BICARBONATE 25 mEq/L (22-26); END TIDAL CO2 43; MEASURED OXYGEN SATURATION 95 % (92-95); O2 CONCENTRATIION 60 % (0-100); P/F RATIO 135 RATIO; PATIENT RATE 18; PRESSURE SUPPORT 7; SIMV YES
--- NOTE | 2016-11-22 08:33 | PDINTPN ---
Family Living Educator Progress Note Assessment/Plan: Assessment/Plan: * Status post pou-sh-oxwwnrdi cardiac/VFib arrest, CPR. * Acute myocardial infarction. Status post multiple stents. * Ischemic cardiomyopathy: Impella placed last night. CO better. UO better * HACA protocol ended * Shock-improved with Impella * Acute respiratory failure. Secondary to 1. -continue vent. No changes for now. Not extubatable * Possible aspiration pneumonia. On Invanz. * Possible anoxic injury. Purposeful movement. Not awake yet * Metabolic: Hypokalemia, hyperglycemia, hypomagnesemia, etc. Per protocols. * Metabolic acidosis. Resolved * Status post lip laceration, sutured. Associated with loss of teeth and nasal bleeding. Bleeding despite packing. Appreciate Trauma surgery help. * Neuro-not awake yet. Case discussed with Nurse and RT. 35 min of critical care time spent with patient Subjective: Obtunded Objective: Vital Signs Temp Pulse Resp BP Pulse Ox 37.6 C 87 18 106/70 100 11/22/16 07:00 11/22/16 07:00 11/22/16 07:00 11/22/16 07:00 11/22/16 07:00 Microbiology 11/20/16 00:30 - Final Sputum, Induced/Suctioned Laboratory Results 11/22/16 05:59 11/22/16 05:59 11/21/16 11/22/16 11/23/16 05:59 05:59 05:59 Intake Total 4810.9 810.7 Output Total 1490 1135 Balance 3320.9 -324.3 PT 17.7 SEC (12.0-15.0) H 11/21/16 21:55 INR 1.46 (0.83-1.16) H 11/21/16 21:55 Laboratory Results 11/22/16 05:59 11/22/16 05:59 11/22/16 11/22/16 11/22/16 05:59 05:26 05:26 Patient Temperature 37.6 DEGREES DEGREES pCO2 42 mmHg H mmHg (34 - 38) pO2 81 mmHg H D mmHg (65 - 75) Total CO2 26 mEq/L mEq/L (23 - 27) ABG pH 7.40 (7.35 - 7.45) ABG PO2/FiO2 Ratio 135 RATIO RATIO ABG O2 Saturation 95 % % (92 - 95) ABG Base Excess 0.9 mEq/L mEq/L (-2.5 - 2.5) O2 Concentration % 60 % % Actual Respiration Rate 18 Set Respiration Rate 18 SIMV YES Tidal Volume 600 End Tidal CO2 43 PEEP 7 Pressure Support 7 Calcium 8.0 mg/dL L mg/dL (8.5 - 10.4) Ionized Calcium 1.11 MMOL/L L MMOL/L (1.12 - 1.30) Phosphorus 3.2 mg/dL mg/dL (2.5 - 4.5) Magnesium Total Bilirubin 1.9 mg/dL H D mg/dL (0.1 - 1.4) AST 230 IU/L H IU/L (17 - 59) ALT 261 IU/L H IU/L (21 - 72) Alkaline Phosphatase 55 IU/L IU/L (38 - 126) Total Protein 5.0 g/dL L g/dL (6.3 - 8.2) Albumin 2.9 g/dL L g/dL (3.5 - 5.0) 11/22/16 01:12 Patient Temperature pCO2 pO2 Total CO2 ABG pH ABG PO2/FiO2 Ratio ABG O2 Saturation ABG Base Excess O2 Concentration % Actual Respiration Rate Set Respiration Rate SIMV Tidal Volume End Tidal CO2 PEEP Pressure Support Calcium Ionized Calcium Phosphorus Magnesium 1.8 mg/dL mg/dL (1.6 - 2.3) Total Bilirubin AST ALT Alkaline Phosphatase Total Protein Albumin - Time Spent With Patient Time Spent With Patient: 35 Physical Exam - Physical Exam General Appearance: other (moving extremities), No alert EENT: PERRL/EOMI, ET tube Neck: non-tender, full range of motion Respiratory: crackles (few), No respiratory distress, No wheezing Cardiac/Chest: normal peripheral pulses, regular rate, rhythm, other (Impella sounds) Peripheral Pulses: 2+: carotid (R), carotid (L), femoral (R), femoral (L), dorsalis-pedis (R), dorsalis-pedis (L) Abdomen: normal bowel sounds, non-tender, soft Male Genitalia: deferred Rectal: deferred Skin: normal color, warm/dry Neuro/Psych: No alert ICD10 Worksheet Patient Problems: Problems Problem Status Onset Lip laceration Acute STEMI (ST elevation myocardial infarction) Acute
[2016-11-22] MEDS ORDERED: MAGNESIUM SULF 1 GM/DEXTROSE 100 ML IV ONE (09:05)
[2016-11-22] MEDS ORDERED: CALCIUM GLUCONATE 50 ML IV ONE (09:05)
[2016-11-22] MEDS: PRASUGREL HCL 10 MG TAB TUBE SCH (09:33)
[2016-11-22] MEDS: ATORVASTATIN CALCIUM 40 MG TAB TUBE SCH (09:33)
[2016-11-22] MEDS: ASPIRIN 325 MG TAB TUBE SCH (09:33)
[2016-11-22] MEDS: PROPOFOL/EMULSION 100 ML IV SCH (09:33)
[2016-11-22] MEDS: NOREPINEPHRINE BITARTRATE 16 MG in D5W 250 ML IV SCH (09:34)
--- NOTE | 2016-11-22 09:51 | ECHO ---
[id number] [id number] + + [address] : : [place] [address] : : [phone] + + Adult Echocardiographic Report + ---------+ :Name: BRIDGET PRUETT 1824Study Date: 11/21/2016 08:48 PM : : Hospital Admission Number: [id number] Emanuellupe gayatrijanel: 252: :: 1965 Gender: Male : :Age: 51 yrs Race: UN : :Reason For Study: Eval Impella Placement : :History: Impella : + ---------+ Left Ventricle Ejection Fraction = 10%. Impella is in the proper position 3.5cm for the aortic valve annulus. There is no obvious catheter migration to the posterior heart wall or mitral valve. Conclusion This is a limited echo to evaluate for Impella placement. Ejection Fraction = 10%. Impella is in the proper position 3.5cm for the aortic valve annulus. There is no obvious catheter migration to the posterior heart wall or mitral valve. Final Reading Physician: Marni Hutton signed on 11/22/2016 09:50 AM Ordering Physician: Maira Olivares Performed By: Jakc Paredes, CS
[2016-11-22] MEDS: RN MUST ADD CA+ & PHOS PROTOCOL TO WORKLIST AT 36 C MISC SCH (09:53)
[2016-11-22] MEDS: MAINTAIN PARALYTIC,ANALGESIA,SEDATION UNTIL TEMP IS 36C MISC SCH (09:53)
[2016-11-22] MEDS: RN MUST REMOVE K+ & MG+ PROTOCOL FROM WORKLIST AT 36 C MISC SCH (09:53)
--- NOTE | 2016-11-22 10:00 | ECHO ---
[id number] + + [address] : : [place] [address] : : [phone] + + Adult Echocardiographic Report + ---------+ :Name: BRIDGET PRUETT 1824Study Date: 11/22/2016 08:45 AM : : Hospital Admission Number: [id number] Radha donovan: 252: :: 1965 Gender: Male : :Age: 51 yrs Race: UN : :Reason For Study: Eval LV Fx : :History: Post Impella Placement : + ---------+ Conclusion This is a limited echo to evaluate for Impella placement. The catheter was moved .5cm to optimized flow. Final Reading Physician: Marni Hutton signed on 11/22/2016 09:58 AM Ordering Physician: Elie Silverio MD Performed By: Jack Paredes, CS
--- NOTE | 2016-11-22 10:25 | CPEKG ---
Heart Rate: 87 RR Interval: 690 P-R Interval: 136 QRSD Interval: 100 QT Interval: 424 QTC Interval: 510 P [place]: 62 QRS [place]: 27 T Wave [place]: 261 EKG Severity - ABNORMAL ECG - EKG Impression: SINUS RHYTHM EKG Impression: ANTERIOR INFARCT, AGE INDETERMINATE EKG Impression: NONSPECIFIC T ABNORMALITIES, INFERIOR LEADS EKG Impression: PROLONGED QT INTERVAL Electronically Signed By: Elie Torres 23-Nov-2016 08:43:15
[2016-11-22 11:28] VITALS: BP 109/70; TEMP 99.5
[2016-11-22] MEDS: ERTAPENEM 1 GM in NS 100 ML IV SCH (11:28)
[2016-11-22] MEDS: fentaNYL/NACL 100 ML IV SCH (11:29)
[2016-11-22] MEDS ORDERED: NS 1,000 ML IV ONE (12:30)
[2016-11-22 12:31] VITALS: PULSE 81; O2SAT 100
== END 2016-11-22 13:00 | disposition short-term general hospital (02) | DRG 215 ==
LOC: EDBD 12:44 → F2N 16:00
PROVIDERS: ADMIT Internal Medicine Cardiovascular Disease; ATTEND Internal Medicine Cardiovascular Disease
PROC: B2151ZZ Fluoroscopy of Left Heart using Low Osmolar Contrast (ICD-10-PCS; 2016-11-19)
PROC: 027 Heart and Great Vessels, Dilation (ICD-10-PCS; 2016-11-19)
PROC: 4A023N7 Measurement of Cardiac Sampling and Pressure, Left Heart, Percutaneous Approach (ICD-10-PCS; 2016-11-19)
PROC: B2111ZZ Fluoroscopy of Multiple Coronary Arteries using Low Osmolar Contrast (ICD-10-PCS; 2016-11-19)
PROC: 2Y41X5Z Packing of Nasal Region using Packing Material (ICD-10-PCS; 2016-11-19)
PROC: 0CQ13ZZ Repair Lower Lip, Percutaneous Approach (ICD-10-PCS; 2016-11-19)
PROC: 02HV33Z Insertion of Infusion Device into Superior Vena Cava, Percutaneous Approach (ICD-10-PCS; 2016-11-19)
PROC: 5A1945Z Respiratory Ventilation, 24-96 Consecutive Hours (ICD-10-PCS; 2016-11-19)
PROC: 0BH17EZ Insertion of Endotracheal Airway into Trachea, Via Natural or Artificial Opening (ICD-10-PCS; 2016-11-19)
PROC: 4A023N6 Measurement of Cardiac Sampling and Pressure, Right Heart, Percutaneous Approach (ICD-10-PCS; principal; 2016-11-21)
PROC: 5A0221D Assistance with Cardiac Output using Impeller Pump, Continuous (ICD-10-PCS; principal; 2016-11-21)
PROC: B2111ZZ Fluoroscopy of Multiple Coronary Arteries using Low Osmolar Contrast (ICD-10-PCS; principal; 2016-11-21)
PROC: 02H Heart and Great Vessels, Insertion (ICD-10-PCS; principal; 2016-11-21)
DX: I21.29 ST elevation (STEMI) myocardial infarction involving other sites (principal); J96.00 Acute respiratory failure, unspecified whether with hypoxia or hypercapnia; J69.0 Pneumonitis due to inhalation of food and vomit; I25.10 Atherosclerotic heart disease of native coronary artery without angina pectoris; S01.511A Laceration without foreign body of lip, initial encounter; S02.5XXA Fracture of tooth (traumatic), initial encounter for closed fracture; S03.2XXA Dislocation of tooth, initial encounter; R04.0 Epistaxis; W18.30XA Fall on same level, unspecified, initial encounter; Y92.89 Other specified places as the place of occurrence of the external cause; E87.6 Hypokalemia; R57.0 Cardiogenic shock
CPT/HCPCS: 80307; 82947-QW; 85520-90; C1725; C1769; C1874; C1887; C9600; C9601; C9606; G0480; J0130; J0282; J0461; J0583; J0610; J0690; J1250; J1265; J1335; J1644; J1650; J1815; J2250; J2704; J3010; J3475; P9041; P9047; Q9967